=== PATIENT | male | born 1930 | race Caucasian/White ===

== ENCOUNTER 2017-10-16 20:31 | Emergency (ER) | payer MEDICARE ==
[2017-10-16] MEDS ORDERED: SODIUM CHLORIDE 0.9% 1,000 ML IV STA (21:02)
--- NOTE | 2017-10-16 21:04 | ED ---
General Adult HPI - General Chief complaint: Abdominal Pain Stated complaint: bowel problems Time Seen by Provider: 10/16/17 21:01 Source: patient, RN notes reviewed, old records reviewed Mode of arrival: wheelchair Limitations: no limitations - History of Present Illness Initial comments: This is a 6-year-old male the ER for evaluation. Patient comes in for weakness , constipation feels he cannot move his bowels. Was in ER earlier this week for similar event. Patient did eat and drink appropriately. No significant weight loss no abdominal pain. - Related Data Home Medications Medication Instructions Recorded Confirmed Allopurinol [Zyloprim] 300 mg PO DAILY 10/16/17 10/16/17 Apixaban [Eliquis] 2.5 mg PO BID 10/16/17 10/16/17 Aspirin EC [Ecotrin Low Dose] 81 mg PO DAILY 10/16/17 10/16/17 Carvedilol [Coreg] 25 mg PO BID 10/16/17 10/16/17 Cyanocobalamin (Vitamin B-12) 1,000 mcg PO DAILY 10/16/17 10/16/17 [Vitamin B-12] Enalapril [Vasotec] 20 mg PO BID 10/16/17 10/16/17 Pyridoxine HCl (Vitamin B6) 100 mg PO DAILY 10/16/17 10/16/17 [Vitamin B-6] Ubidecarenone [Co Q-10] 100 mg PO DAILY 10/16/17 10/16/17 Vitamin D3(Unknown) 1 tab PO DAILY 10/16/17 10/16/17 amLODIPine [Norvasc] 5 mg PO DAILY 10/16/17 10/16/17 Allergies Allergy/AdvReac Type Severity Reaction Status Date / Time No Known Allergies Allergy Verified 10/16/17 21:13 Review of Systems ROS Statement: Those systems with pertinent positive or pertinent negative responses have been documented in the HPI. ROS Other: All systems not noted in ROS Statement are negative. Past Medical History Past Medical History: Coronary Artery Disease (CAD), Hyperlipidemia, Hypertension Additional Past Medical History / Comment(s): aortic stent, History of Any Multi-Drug Resistant Organisms: None Reported Past Surgical History: Heart Catheterization With Stent, Orthopedic Surgery Additional Past Surgical History / Comment(s): right hip Past Psychological History: No Psychological Hx Reported Smoking Status: Former smoker Past Alcohol Use History: None Reported Past Drug Use History: None Reported General Exam Limitations: no limitations General appearance: alert, in no apparent distress Head exam: Present: atraumatic, normocephalic, normal inspection Eye exam: Present: normal appearance, PERRL, EOMI. Absent: scleral icterus, conjunctival injection, periorbital swelling ENT exam: Present: normal exam, mucous membranes moist Neck exam: Present: normal inspection. Absent: tenderness, meningismus, lymphadenopathy Respiratory exam: Present: normal lung sounds bilaterally. Absent: respiratory distress, wheezes, rales, rhonchi, stridor Cardiovascular Exam: Present: regular rate, normal rhythm, normal heart sounds. Absent: systolic murmur, diastolic murmur, rubs, gallop, clicks GI/Abdominal exam: Present: soft, normal bowel sounds. Absent: distended, tenderness, guarding, rebound, rigid Extremities exam: Present: normal inspection, full ROM, normal capillary refill. Absent: tenderness, pedal edema, joint swelling, calf tenderness Back exam: Present: normal inspection Neurological exam: Present: alert, oriented X3, CN II-XII intact Psychiatric exam: Present: normal affect, normal mood Skin exam: Present: warm, dry, intact, normal color. Absent: rash Course Vital Signs 10/16/17 20:51 Temperature 97.2 F L Pulse Rate 67 Respiratory 20 Rate Blood Pressure 107/67 O2 Sat by Pulse 97 Oximetry - Reevaluation(s) Reevaluation #1: 10/16/17 22:19 Patient has bowel movement here in the ER, no complaints Medical Decision Making - Medical Decision Making 86 male the ER for acute disease. Patient has a bowel movement here in the ER r with bowel regimen. Patient can be discharged home - Lab Data Result diagrams: 10/16/17 21:20 10/16/17 21:20 Lab Results 10/16/17 10/16/17 Range/Units 21:20 21:20 WBC 8.2 (3.8-10.6) k/uL RBC 3.91 L (4.30-5.90) m/uL Hgb 12.0 L (13.0-17.5) gm/dL Hct 37.2 L (39.0-53.0) % MCV 95.0 (80.0-100.0) fL MCH 30.6 (25.0-35.0) pg MCHC 32.2 (31.0-37.0) g/dL RDW 14.3 (11.5-15.5) % Plt Count 124 L (150-450) k/uL Neutrophils % 77 % Lymphocytes % 12 % Monocytes % 7 % Eosinophils % 3 % Basophils % 0 % Neutrophils # 6.4 (1.3-7.7) k/uL Lymphocytes # 1.0 (1.0-4.8) k/uL Monocytes # 0.6 (0-1.0) k/uL Eosinophils # 0.2 (0-0.7) k/uL Basophils # 0.0 (0-0.2) k/uL Sodium 143 (137-145) mmol/L Potassium 4.4 (3.5-5.1) mmol/L Chloride 101 (98-107) mmol/L Carbon Dioxide 29 (22-30) mmol/L Anion Gap 13 mmol/L BUN 24 H (9-20) mg/dL Creatinine 0.90 (0.66-1.25) mg/dL Est GFR (CKD-EPI)AfAm 89 (>60 ml/min/1.73 sqM) Est GFR (CKD-EPI)NonAf 77 (>60 ml/min/1.73 sqM) Glucose 101 H (74-99) mg/dL Calcium 9.7 (8.4-10.2) mg/dL Phosphorus 3.4 (2.5-4.5) mg/dL Magnesium 1.8 (1.6-2.3) mg/dL Total Bilirubin 0.8 (0.2-1.3) mg/dL AST 34 (17-59) U/L ALT 18 L (21-72) U/L Alkaline Phosphatase 72 (38-126) U/L Total Protein 6.1 L (6.3-8.2) g/dL Albumin 3.9 (3.5-5.0) g/dL Amylase 54 (30-110) U/L Lipase 98 (23-300) U/L - Radiology Data Radiology results: report reviewed (X-ray KUB negative), image reviewed Disposition Clinical Impression: Constipation Disposition: HOME SELF-CARE Condition: Good Instructions: Constipation (ED) Is patient prescribed a controlled substance at d/c from ED?: No Referrals: Prem Cedeno MD [Primary Care Provider] - 1-2 days
--- NOTE | 2017-10-16 21:20 | XR ---
EXAMINATION TYPE: XR KUB DATE OF EXAM: 10/16/2017 COMPARISON: NONE HISTORY: Constipation TECHNIQUE: 2 views FINDINGS: There is no sign of intestinal obstruction or pneumoperitoneum. Fecal pattern is normal. Th ere is an aortoiliac stent noted. Lung bases are clear. There are no pathologic calcifications over t he kidneys. There is right hip prosthesis. There is increased density over the heart that could relat e to thoracic aortic aneurysm. IMPRESSION: Possible thoracic aortic aneurysm or unusual dilated esophagus. Nonacute abdomen. No evid ence of constipation.
[2017-10-16] MEDS ORDERED: KETOROLAC 30 MG/ML 1 ML VIAL IVP STA (21:23)
[2017-10-16] MEDS ORDERED: GLYCERIN ADULT SUPPOSITORY 1 EACH RECTAL STA (21:23)
[2017-10-16] MEDS ORDERED: MAGNESIUM CITRATE 296 ML BOTTLE PO ONE (21:23)
[2017-10-16] MEDS ORDERED: SENNOSIDES-DOCUSATE SODIUM 1 EACH TAB PO STA (21:23)
[2017-10-16 21:36] LABS: Basophils % (A) 0 %; Eosinophils # (A) 0.2 k/uL (0-0.7); Eosinophils % (A) 3 %; HCT 37.2 % (39.0-53.0); Lymphocytes % (A) 12 %; MCH 30.6 pg (25.0-35.0); MCHC 32.2 g/dL (31.0-37.0); Mean Platelet Volume 8.9; Monocytes # (A) 0.6 k/uL (0-1.0); Monocytes % (A) 7 %; Neutrophils # (A) 6.4 k/uL (1.3-7.7); Neutrophils % (A) 77 %; Platelet Count 124 k/uL (150-450); RBC 3.91 m/uL (4.30-5.90); RDW 14.3 % (11.5-15.5); WBC 8.2 k/uL (3.8-10.6)
[2017-10-16 21:54] LABS: Albumin 3.9 g/dL (3.5-5.0); Calcium 9.7 mg/dL (8.4-10.2); Magnesium 1.8 mg/dL (1.6-2.3); Phosphorus 3.4 mg/dL (2.5-4.5); Potassium 4.4 mmol/L (3.5-5.1); Total Bilirubin 0.8 mg/dL (0.2-1.3); Total Protein 6.1 g/dL (6.3-8.2)
[2017-10-16 22:34] VITALS: BP 115/70; PULSE 90; RESP 18; TEMP 97
== END 2017-10-16 22:33 | disposition home or self-care (01) ==
LOC: EC 20:31
DX: K59.00 Constipation, unspecified (principal); R10.9 Unspecified abdominal pain; R53.1 Weakness; I25.10 Atherosclerotic heart disease of native coronary artery without angina pectoris; E78.5 Hyperlipidemia, unspecified; I10 Essential (primary) hypertension; Z87.891 Personal history of nicotine dependence; Z79.82 Long term (current) use of aspirin; Z79.01 Long term (current) use of anticoagulants; Z79.899 Other long term (current) drug therapy; Z95.5 Presence of coronary angioplasty implant and graft
CPT/HCPCS: 36415; 80053; 82150; 83690; 83735; 84100; 85025; 74018; 99284; 96374; 96361; J1885

== ENCOUNTER 2017-12-11 19:33 | Emergency (ER) | payer MEDICARE ==
[2017-12-11 19:45] VITALS: BP 146/78; PULSE 64; RESP 18; TEMP 98.3
[2017-12-11] MEDS ORDERED: ceFAZolin 1,000 MG VIAL IM STA (19:52)
--- NOTE | 2017-12-11 19:56 | ED ---
General Adult HPI - General Chief complaint: Skin/Abscess/Foreign Body Stated complaint: fall Time Seen by Provider: 12/11/17 19:35 Source: patient, RN notes reviewed Mode of arrival: wheelchair Limitations: no limitations - History of Present Illness Initial comments: This is an 86-year-old male who comes in complaining of possible infection to his abrasion on his right falcon. Patient states he fell 2 days ago causing abrasion. Patient states he still somewhat an urgent care facility and they wrapped it became no antibiotics. Patient states today was a little more red so he wanted to make sure wasn't getting infected and came in to be evaluated. Patient denies any drainage patient denies any increased pain. Patient is a red streak. Patient denies any fever or chills. - Related Data Home Medications Medication Instructions Recorded Confirmed Allopurinol [Zyloprim] 300 mg PO DAILY 10/16/17 10/16/17 Apixaban [Eliquis] 2.5 mg PO BID 10/16/17 10/16/17 Aspirin EC [Ecotrin Low Dose] 81 mg PO DAILY 10/16/17 10/16/17 Carvedilol [Coreg] 25 mg PO BID 10/16/17 10/16/17 Cyanocobalamin (Vitamin B-12) 1,000 mcg PO DAILY 10/16/17 10/16/17 [Vitamin B-12] Enalapril [Vasotec] 20 mg PO BID 10/16/17 10/16/17 Pyridoxine HCl (Vitamin B6) 100 mg PO DAILY 10/16/17 10/16/17 [Vitamin B-6] Ubidecarenone [Co Q-10] 100 mg PO DAILY 10/16/17 10/16/17 Vitamin D3(Unknown) 1 tab PO DAILY 10/16/17 10/16/17 amLODIPine [Norvasc] 5 mg PO DAILY 10/16/17 10/16/17 Previous Rx's Medication Instructions Recorded Cephalexin [Keflex] 500 mg PO Q6HR #28 cap 12/11/17 Mupirocin 2% Oint [Bactroban 2% 1 applic TOPICAL TID 7 Days gm 12/11/17 Oint] Allergies Allergy/AdvReac Type Severity Reaction Status Date / Time No Known Allergies Allergy Verified 12/11/17 19:44 Review of Systems ROS Statement: Those systems with pertinent positive or pertinent negative responses have been documented in the HPI. ROS Other: All systems not noted in ROS Statement are negative. Past Medical History Past Medical History: Coronary Artery Disease (CAD), Hyperlipidemia, Hypertension Additional Past Medical History / Comment(s): aortic stent, History of Any Multi-Drug Resistant Organisms: None Reported Past Surgical History: Heart Catheterization With Stent, Orthopedic Surgery Additional Past Surgical History / Comment(s): right hip Past Psychological History: No Psychological Hx Reported Smoking Status: Former smoker Past Alcohol Use History: None Reported Past Drug Use History: None Reported General Exam - General Exam Comments Initial Comments: GENERAL Patient is well-developed and well-nourished. Patient is in mild distress. EYES Patient's pupils are equal and round. Extraocular motion is intact SKIN Unremarkable NEURO The patient is alert and oriented 3 PYSCH Patient has normal interpersonal interactions. MUSCULOSKELETAL Patient has a superficial abrasion to the right anterior falcon however there is some mild erythema around the wound which she states is new today Limitations: no limitations Course Vital Signs 12/11/17 19:40 Temperature 98.3 F Pulse Rate 64 Respiratory 18 Rate Blood Pressure 146/78 O2 Sat by Pulse 96 Oximetry Medical Decision Making - Medical Decision Making Because the patient was complaining of some new increased redness today around the abrasion I gave the patient a shot of Ancef and sent the patient home on Keflex. Disposition Clinical Impression: Cellulitis, leg Disposition: HOME SELF-CARE Condition: Good Instructions: Cellulitis (ED) Prescriptions: Cephalexin [Keflex] 500 mg PO Q6HR #28 cap Mupirocin 2% Oint [Bactroban 2% Oint] 1 applic TOPICAL TID 7 Days gm Is patient prescribed a controlled substance at d/c from ED?: No Referrals: Prem Cedeno MD [Primary Care Provider] - 1-2 days Time of Disposition: 19:55
== END 2017-12-11 20:33 | disposition home or self-care (01) ==
LOC: EC 19:33
DX: L03.115 Cellulitis of right lower limb (principal); S80.811A Abrasion, right lower leg, initial encounter; I10 Essential (primary) hypertension; I25.10 Atherosclerotic heart disease of native coronary artery without angina pectoris; Z87.891 Personal history of nicotine dependence; Z79.01 Long term (current) use of anticoagulants; Z79.82 Long term (current) use of aspirin; Z79.899 Other long term (current) drug therapy; W07.XXXA Fall from chair, initial encounter
CPT/HCPCS: 99283; 96372; J0690

== ENCOUNTER 2018-01-16 15:12 | Emergency (ER) | payer MEDICARE ==
[2018-01-16] MEDS ORDERED: SODIUM CHLORIDE 0.9% 1,000 ML IV STA (15:26)
[2018-01-16 15:48] VITALS: RESP 18
[2018-01-16 15:57] LABS: Basophils % (A) 0 %; Eosinophils # (A) 0.4 k/uL (0-0.7); Eosinophils % (A) 6 %; HCT 38.2 % (39.0-53.0); HGB 11.9 gm/dL (13.0-17.5); Hypochromasia Slight; Lymphocytes % (A) 14 %; MCH 29.5 pg (25.0-35.0); MCHC 31.3 g/dL (31.0-37.0); MCV 94.2 fL (80.0-100.0); Mean Platelet Volume 8.1; Monocytes # (A) 0.5 k/uL (0-1.0); Monocytes % (A) 7 %; Neutrophils % (A) 72 %; Platelet Count 129 k/uL (150-450); RBC 4.05 m/uL (4.30-5.90); RDW 14.2 % (11.5-15.5); WBC 6.9 k/uL (3.8-10.6)
[2018-01-16 16:06] LABS: INR 1.2 (<1.2); Partial Thromboplastin Time 24.2 sec (22.0-30.0); Prothrombin Time 11.4 sec (9.0-12.0)
--- NOTE | 2018-01-16 16:07 | ED ---
Neuro HPI - General Chief Complaint: Neuro Symptoms/Deficit Stated Complaint: Fall Time Seen by Provider: 01/16/18 15:15 Source: patient Mode of arrival: EMS Limitations: physical limitation - History of Present Illness Is the patient presenting with stroke symptoms?: No Initial Comments: He fell yesterday, he landed on his knees and hit his head against a humidifier is complaining about pain behind the right ear then he developed difficulties speaking yesterday around 7 PM, it has cleared up now he is on a blood thinners he is on aliquots for his atrial fibrillation. Right now denies any headaches no blurred vision no slurred speech no chest pain or shortness of breath no abdominal pain no frequency urgency dysuria he has symptoms of TIA or CVA area which has resolved now. He feels his right leg is weak he is not quite sure if this is because of the injury he has right knee. He denies any loss of consciousness - Related Data Home Medications: Home Medications Medication Instructions Recorded Confirmed Allopurinol [Zyloprim] 300 mg PO DAILY 10/16/17 01/16/18 Apixaban [Eliquis] 2.5 mg PO BID 10/16/17 01/16/18 Aspirin EC [Ecotrin Low Dose] 81 mg PO DAILY 10/16/17 01/16/18 Carvedilol [Coreg] 25 mg PO BID 10/16/17 01/16/18 Enalapril [Vasotec] 20 mg PO BID 10/16/17 01/16/18 Ubidecarenone [Co Q-10] 100 mg PO DAILY 10/16/17 01/16/18 amLODIPine [Norvasc] 5 mg PO DAILY 10/16/17 01/16/18 Rosuvastatin [Crestor] 20 mg PO HS 12/11/17 01/16/18 Vitamin B Complex 2 cap PO DAILY 01/16/18 01/16/18 Previous Rx's Medication Instructions Recorded Mupirocin 2% Oint [Bactroban 2% 1 applic TOPICAL TID 7 Days gm 12/11/17 Oint] Allergies/Adverse Reactions: Allergies Allergy/AdvReac Type Severity Reaction Status Date / Time No Known Allergies Allergy Verified 01/16/18 16:12 Review of Systems ROS Statement: Those systems with pertinent positive or pertinent negative responses have been documented in the HPI. ROS Other: All systems not noted in ROS Statement are negative. General Exam - General Exam Comments Initial Comments: General: The patient is awake and alert, in no distress, and does not appear acutely ill. Skin: Skin is warm and dry and no rashes or lesions are noted. Notice abrasions on the right knee and some extent on the left knee as well. Noticed some bruising on the right ear, there is no laceration there is no hematoma on the external ear Eye: Pupils are equal, round and reactive to light, extra-ocular movements are intact; there is normal conjunctiva bilaterally. Ears, nose, mouth and throat: There are moist mucous membranes and no oral lesions. Neck: The neck is supple, there is no tenderness or JVD. Cardiovascular: There is a regular rate and rhythm. No murmur, rub or gallop is appreciated. Respiratory: To auscultation bilateral, no wheezing no rhonchi no distress respiratory bone noticed Gastrointestinal: Soft, non-distended, non-tender abdomen without masses or organomegaly noted. There is no rebound or guarding present. Bowel sounds are unremarkable. Back: There is no tenderness to palpation in the midline. There is no obvious deformity. Musculoskeletal: Normal ROM, no tenderness, There is no pedal edema. There is no calf tenderness or swelling. No cords were appreciated. Neurological: CN II-XII intact, Cranial nerves III through XII are intact. There are no obvious motor or sensory deficits. Coordination appears grossly intact. Speech is normal. Psychiatric: Cooperative, appropriate mood & affect, normal judgment. Limitations: physical limitation Stroke MDM - Lab Data Result diagrams: 01/16/18 15:30 01/16/18 15:30 Lab Results 01/16/18 01/16/18 01/16/18 Range/Units 15:30 15:30 15:30 WBC 6.9 (3.8-10.6) k/uL RBC 4.05 L (4.30-5.90) m/uL Hgb 11.9 L (13.0-17.5) gm/dL Hct 38.2 L (39.0-53.0) % MCV 94.2 (80.0-100.0) fL MCH 29.5 (25.0-35.0) pg MCHC 31.3 (31.0-37.0) g/dL RDW 14.2 (11.5-15.5) % Plt Count 129 L (150-450) k/uL Neutrophils % 72 % Lymphocytes % 14 % Monocytes % 7 % Eosinophils % 6 % Basophils % 0 % Neutrophils # 5.0 (1.3-7.7) k/uL Lymphocytes # 1.0 (1.0-4.8) k/uL Monocytes # 0.5 (0-1.0) k/uL Eosinophils # 0.4 (0-0.7) k/uL Basophils # 0.0 (0-0.2) k/uL Hypochromasia Slight PT (9.0-12.0) sec INR (<1.2) APTT (22.0-30.0) sec Sodium 140 (137-145) mmol/L Potassium 4.7 (3.5-5.1) mmol/L Chloride 108 H (98-107) mmol/L Carbon Dioxide 28 (22-30) mmol/L Anion Gap 4 mmol/L BUN 36 H (9-20) mg/dL Creatinine 0.90 (0.66-1.25) mg/dL Est GFR (CKD-EPI)AfAm 88 (>60 ml/min/1.73 sqM) Est GFR (CKD-EPI)NonAf 77 (>60 ml/min/1.73 sqM) Glucose 99 (74-99) mg/dL Calcium 9.2 (8.4-10.2) mg/dL Total Bilirubin 0.6 (0.2-1.3) mg/dL AST 29 (17-59) U/L ALT 29 (21-72) U/L Alkaline Phosphatase 91 (38-126) U/L Total Creatine Kinase 56 (55-170) U/L CK-MB (CK-2) 0.6 (0.0-2.4) ng/mL CK-MB (CK-2) Rel Index 1.1 Troponin I <0.012 (0.000-0.034) ng/mL Total Protein 6.1 L (6.3-8.2) g/dL Albumin 3.7 (3.5-5.0) g/dL 01/16/18 Range/Units 15:30 WBC (3.8-10.6) k/uL RBC (4.30-5.90) m/uL Hgb (13.0-17.5) gm/dL Hct (39.0-53.0) % MCV (80.0-100.0) fL MCH (25.0-35.0) pg MCHC (31.0-37.0) g/dL RDW (11.5-15.5) % Plt Count (150-450) k/uL Neutrophils % % Lymphocytes % % Monocytes % % Eosinophils % % Basophils % % Neutrophils # (1.3-7.7) k/uL Lymphocytes # (1.0-4.8) k/uL Monocytes # (0-1.0) k/uL Eosinophils # (0-0.7) k/uL Basophils # (0-0.2) k/uL Hypochromasia PT 11.4 (9.0-12.0) sec INR 1.2 H (<1.2) APTT 24.2 (22.0-30.0) sec Sodium (137-145) mmol/L Potassium (3.5-5.1) mmol/L Chloride (98-107) mmol/L Carbon Dioxide (22-30) mmol/L Anion Gap mmol/L BUN (9-20) mg/dL Creatinine (0.66-1.25) mg/dL Est GFR (CKD-EPI)AfAm (>60 ml/min/1.73 sqM) Est GFR (CKD-EPI)NonAf (>60 ml/min/1.73 sqM) Glucose (74-99) mg/dL Calcium (8.4-10.2) mg/dL Total Bilirubin (0.2-1.3) mg/dL AST (17-59) U/L ALT (21-72) U/L Alkaline Phosphatase (38-126) U/L Total Creatine Kinase (55-170) U/L CK-MB (CK-2) (0.0-2.4) ng/mL CK-MB (CK-2) Rel Index Troponin I (0.000-0.034) ng/mL Total Protein (6.3-8.2) g/dL Albumin (3.5-5.0) g/dL Past Medical History Past Medical History: Coronary Artery Disease (CAD), Hyperlipidemia, Hypertension Additional Past Medical History / Comment(s): aortic stent, History of Any Multi-Drug Resistant Organisms: None Reported Past Surgical History: Heart Catheterization With Stent, Orthopedic Surgery Additional Past Surgical History / Comment(s): right hip Past Psychological History: No Psychological Hx Reported Smoking Status: Former smoker Past Alcohol Use History: None Reported Past Drug Use History: None Reported Course Vital Signs 01/16/18 01/16/18 01/16/18 15:30 15:46 15:55 Temperature 99 F Pulse Rate 67 63 78 Respiratory 18 18 18 Rate Blood Pressure 156/72 138/68 137/70 O2 Sat by Pulse 99 98 98 Oximetry He fell yesterday 11 AM, he noticed symptoms of dysarthria 7 PM last night he is not in any kind of in and out and his symptoms has cleared he is not a candidate of any kind of intervention or do a head CT because he fell is 87 and he is on aliquots. EKG is atrial fibrillation he has a history of atrial fibrillation ventricular rate of 71 QRS duration is 86 QT/QTc is 428/465 review of this EKG does not reveal any ST elevation or ST depression. Plan reassessment at 1700 he feels back to 100% initially he said his legs feels weak and I wanted to observe him overnight for neurology consult and probably MRI but now he said he feels symptoms have resolved 100% and he wants to go home. His head CT is, chest x-ray was some cardiomegaly x-ray CBC, INR, troponin, EKG, comprehensive metabolic panel are all and unremarkable and clinically he feels he is back to his baseline. He'll be gone home we'll lobe send him to follow-up with the Disposition Clinical Impression: Dysarthria, Fall, Knee injury, Head injury, TIA (transient ischemic attack) Disposition: HOME SELF-CARE Condition: Good Instructions: Transient Ischemic Attack (ED) Additional Instructions: Aspirin 81 mg by mouth daily Is patient prescribed a controlled substance at d/c from ED?: No Referrals: Prem Cedeno MD [Primary Care Provider] - 1-2 days Raegan Hdz MD [STAFF PHYSICIAN] - 1-2 days
[2018-01-16 16:10] LABS: Albumin 3.7 g/dL (3.5-5.0); Calcium 9.2 mg/dL (8.4-10.2); Potassium 4.7 mmol/L (3.5-5.1); Total Bilirubin 0.6 mg/dL (0.2-1.3); Total Protein 6.1 g/dL (6.3-8.2)
[2018-01-16 16:13] LABS: Creatine Kinase 56 U/L (55-170)
--- NOTE | 2018-01-16 16:22 | CT ---
EXAMINATION TYPE: CT brain wo con DATE OF EXAM: 01/16/2018 HISTORY: Fall injury. Neural deficits per order. CT DLP: 1165 mGycm. Automated Exposure Control for Dose Reduction was Utilized. TECHNIQUE: CT scan of the head is performed without contrast. COMPARISON: None. FINDINGS: There is no acute intracranial hemorrhage or midline shift identified. There is diffuse v entricular and sulcal prominence consistent with diffuse age-related cerebral atrophy. There is low- attenuation in the periventricular white matter consistent with chronic small vessel ischemic change. Bilateral basal ganglia calcifications are seen. The globes are intact and the visualized sinuses ar e clear. The calvarium is intact. Vascular calcification distal internal carotid arteries bilateral ly is present. IMPRESSION: No acute intracranial hemorrhage or midline shift. There is fairly moderate diffuse age -related cerebral atrophy and mild chronic small vessel ischemic change noted. If clinical concern for acute stroke persists further investigation with MRI study may be warranted.
[2018-01-16 16:26] LABS: Creatine Kinase MB 0.6 ng/mL (0.0-2.4); Troponin I <0.012 ng/mL (0.000-0.034)
--- NOTE | 2018-01-16 16:52 | XR ---
EXAMINATION TYPE: XR chest 2V DATE OF EXAM: 01/16/2018 COMPARISON: 01/09/2013 HISTORY: Altered mental status. TECHNIQUE: Frontal and lateral views of the chest are obtained. FINDINGS: Heart is enlarged. There is no heart failure. Lungs are clear of infiltrate. There is no p leural effusion. There are chest leads. Bony thorax is intact. IMPRESSION: Cardiomegaly. No active cardiopulmonary disease. No change.
--- NOTE | 2018-01-16 16:53 | XR ---
EXAMINATION TYPE: XR knee complete bilateral DATE OF EXAM: 01/16/2018 COMPARISON: NONE HISTORY: Knee pain TECHNIQUE: 3 views each knee FINDINGS: There is vascular calcification. There is spurring on the right superior patella. The joint spaces are fairly normal. There is some spurring at the left tibial tubercle. There is small right-s ided knee joint effusion. IMPRESSION: No fracture. Degenerative spurring as above. There is some prepatellar soft tissue swelli ng on the right side with small knee joint effusion. No significant joint space narrowing.
[2018-01-16] MEDS ORDERED: ASPIRIN 81 MG PO STA (16:54)
[2018-01-16] MEDS ORDERED: DIPH,PERTUS(ACELL)TETVAC-LF 0.5 ML VIAL IM ONE (16:55)
[2018-01-16 17:50] VITALS: BP 143/67; PULSE 62; TEMP 98.4
== END 2018-01-16 17:50 | disposition home or self-care (01) ==
LOC: EC 15:12
DX: G45.9 Transient cerebral ischemic attack, unspecified (principal); S80.211A Abrasion, right knee, initial encounter; S00.431A Contusion of right ear, initial encounter; R47.1 Dysarthria and anarthria; Z23 Encounter for immunization; Z79.01 Long term (current) use of anticoagulants; Z79.82 Long term (current) use of aspirin; Z79.899 Other long term (current) drug therapy; W01.198A Fall on same level from slipping, tripping and stumbling with subsequent striking against other object, initial encounter; Y92.69 Other specified industrial and construction area as the place of occurrence of the external cause; Y99.0 Civilian activity done for income or pay
CPT/HCPCS: 36415; 70450; 71046; 80053; 82550; 82553; 84484; 85025; 85610; 85730; 90471; 90715; 93005; 96360; 96361; 99284

== ENCOUNTER 2018-04-04 00:12 | Inpatient (IN) | payer MEDICARE ==
[2018-04-04] MEDS ORDERED: SODIUM CHLORIDE 0.9% 500 ML 500 ML IV STA (01:18)
[2018-04-04] MEDS ORDERED: IPRATROPIUM-ALBUTEROL 3 ML NEB INHALATION STA (01:19)
--- NOTE | 2018-04-04 01:19 | ED ---
General Adult HPI - General Source: patient, RN notes reviewed Mode of arrival: wheelchair Limitations: no limitations <John Nicole - Last Filed: 04/05/18 12:05> <Alexandre Garrett - Last Filed: 04/06/18 20:18> - General Chief complaint: Shortness of Breath Stated complaint: SOB Time Seen by Provider: 04/04/18 00:56 - History of Present Illness Initial comments: 87-year-old male with a past medical history of hyper tension, hyperlipidemia, CAD, atrial fibrillation presents to the emergency department for a chief complaint of shortness of breath 3 nights. Patient states that when he lays down at night he develops shortness of breath. He denies a history of heart failure. He denies any swelling in the legs. Patient denies any current smoking and states he quit over 30 years ago. Patient did have a heart catheterization years ago and currently has an aortic stent. Patient admits to feeling like he is wheezing when he is lying flat. He denies having any chest pain whatsoever. He denies having a cough. He denies any fevers at home. Patient has no other complaints at this time including his pain, abdominal pain , nausea or vomiting, headache, or visual changes. (John Nicole) - Related Data Home Medications Medication Instructions Recorded Confirmed Allopurinol [Zyloprim] 300 mg PO DAILY 10/16/17 04/04/18 Apixaban [Eliquis] 2.5 mg PO BID 10/16/17 04/04/18 Aspirin EC [Ecotrin Low Dose] 81 mg PO DAILY 10/16/17 04/04/18 Carvedilol [Coreg] 25 mg PO BID 10/16/17 04/04/18 Enalapril [Vasotec] 20 mg PO BID 10/16/17 04/04/18 Ubidecarenone [Co Q-10] 100 mg PO DAILY 10/16/17 04/04/18 amLODIPine [Norvasc] 5 mg PO DAILY 10/16/17 04/04/18 Hydrochlorothiazide [Hydrodiuril] 12.5 mg PO DAILY 04/04/18 04/04/18 Lutein 10 mg PO DAILY 04/04/18 04/04/18 Allergies Allergy/AdvReac Type Severity Reaction Status Date / Time No Known Allergies Allergy Verified 01/16/18 16:12 Review of Systems ROS Other: All systems not noted in ROS Statement are negative. <John Nicole - Last Filed: 04/05/18 12:05> ROS Other: All systems not noted in ROS Statement are negative. <ElversuhaAlexandre - Last Filed: 04/06/18 20:18> ROS Statement: Those systems with pertinent positive or pertinent negative responses have been documented in the HPI. Past Medical History Past Medical History: Coronary Artery Disease (CAD), Hyperlipidemia, Hypertension Additional Past Medical History / Comment(s): aortic stent, History of Any Multi-Drug Resistant Organisms: None Reported Past Surgical History: Heart Catheterization With Stent, Orthopedic Surgery Additional Past Surgical History / Comment(s): right hip Past Psychological History: No Psychological Hx Reported Smoking Status: Former smoker Past Alcohol Use History: None Reported Past Drug Use History: None Reported <John Nicole - Last Filed: 04/05/18 12:05> - Past Family History Father Family Medical History: No Reported History Additional Family Medical History / Comment(s): Father of natural causes at the age of 92 yrs. Mother Family Medical History: No Reported History Additional Family Medical History / Comment(s): Mother of natural causes at the age of 89yrs. <Alexandre Garrett - Last Filed: 04/06/18 20:18> General Exam Limitations: no limitations General appearance: alert, in no apparent distress Head exam: Present: atraumatic, normocephalic, normal inspection Eye exam: Present: normal appearance, PERRL, EOMI. Absent: scleral icterus, conjunctival injection, periorbital swelling ENT exam: Present: normal exam, mucous membranes moist Neck exam: Present: normal inspection, full ROM. Absent: tenderness, meningismus, lymphadenopathy Respiratory exam: Present: decreased breath sounds (Diminished lung sounds bilaterally). Absent: respiratory distress, wheezes, rales, rhonchi, stridor Cardiovascular Exam: Present: regular rate, irregular rhythm, normal heart sounds. Absent: systolic murmur, diastolic murmur, rubs, gallop, clicks Neurological exam: Present: alert, oriented X3, CN II-XII intact Psychiatric exam: Present: normal affect, normal mood <John Nicole - Last Filed: 04/05/18 12:05> Vital Signs 04/04/18 04/04/18 04/04/18 00:24 01:27 03:01 Temperature 98.5 F Pulse Rate 76 76 Respiratory 20 16 Rate Blood Pressure 122/73 O2 Sat by Pulse 94 L 90 L Oximetry 04/04/18 04/04/18 04/04/18 03:17 03:26 04:47 Temperature Pulse Rate 80 76 80 Respiratory 16 Rate Blood Pressure 119/67 O2 Sat by Pulse 95 Oximetry 04/04/18 04/04/18 04/04/18 07:09 08:19 13:00 Temperature 98.5 F 98.0 F Pulse Rate 85 88 84 Respiratory 16 18 16 Rate Blood Pressure 110/68 113/76 106/64 O2 Sat by Pulse 92 L 98 98 Oximetry EKG Findings - EKG Comments: EKG Findings:: EKG shows atrial fibrillation, ventricular rate 82, QRS duration 78, QTc 436, no evidence of ST elevation or depression <John Nicole - Last Filed: 04/05/18 12:05> Medical Decision Making - Lab Data Result diagrams: 04/04/18 00:25 04/05/18 06:32 <John Nicole - Last Filed: 04/05/18 12:05> - Lab Data Result diagrams: 04/06/18 05:51 04/06/18 05:51 <Alexandre Garrett - Last Filed: 04/06/18 20:18> - Medical Decision Making 87-year-old male with past medical history of hypertension, hyperlipidemia, CAD , atrial fibrillation presents to the emergency department for a chief complaint of shortness of breath 3 days. Shortness of breath is worse when he lays down at night. He denies a history of heart failure. On exam patient has diminished lung sounds bilaterally. He denies cough. No wheezing noted. He does not appear short of breath at this time and appears comfortable. EKG showed atrial fibrillation without any evidence of ST elevation or depression. Troponin was positive at 0.082. Patient is currently compliant on Eliquis which will be continued in the hospital. D-dimer 3.15 the patient cannot receive CAT scan at this time due to kidney function. VQ scan will be ordered for the morning. X-ray of the chest showed new bilateral pleural effusions. Lower lobe pneumonia cannot be entirely excluded but the patient denies cough or fever and does not clinically have pneumonia. Pleural effusions likely secondary to CHF. At this time patient will be started on Lasix. He will be admitted to the hospital with repeat troponins ordered. (John Nicole) I saw this patient in conjunction with the physician patient assistant. I performed independent history and physical exam. Agree with case management. (Alexandre Garrett) - Lab Data Lab Results 04/04/18 04/04/18 04/04/18 Range/Units 00:25 00:25 00:25 WBC 15.2 H (3.8-10.6) k/uL RBC 4.16 L (4.30-5.90) m/uL Hgb 12.1 L (13.0-17.5) gm/dL Hct 39.3 (39.0-53.0) % MCV 94.5 (80.0-100.0) fL MCH 29.1 (25.0-35.0) pg MCHC 30.8 L (31.0-37.0) g/dL RDW 14.3 (11.5-15.5) % Plt Count 253 (150-450) k/uL Neutrophils % 87 % Lymphocytes % 6 % Monocytes % 6 % Eosinophils % 0 % Basophils % 0 % Neutrophils # 13.2 H (1.3-7.7) k/uL Lymphocytes # 1.0 (1.0-4.8) k/uL Monocytes # 0.9 (0-1.0) k/uL Eosinophils # 0.0 (0-0.7) k/uL Basophils # 0.0 (0-0.2) k/uL PT (9.0-12.0) sec INR (<1.2) APTT (22.0-30.0) sec D-Dimer (<0.60) mg/L FEU Sodium 137 (137-145) mmol/L Potassium 5.1 (3.5-5.1) mmol/L Chloride 102 (98-107) mmol/L Carbon Dioxide 27 (22-30) mmol/L Anion Gap 8 mmol/L BUN 47 H (9-20) mg/dL Creatinine 1.58 H (0.66-1.25) mg/dL Est GFR (CKD-EPI)AfAm 45 (>60 ml/min/1.73 sqM) Est GFR (CKD-EPI)NonAf 39 (>60 ml/min/1.73 sqM) Glucose 130 H (74-99) mg/dL Calcium 9.5 (8.4-10.2) mg/dL Magnesium 2.1 (1.6-2.3) mg/dL Total Bilirubin 0.9 (0.2-1.3) mg/dL AST 27 (17-59) U/L ALT 34 (21-72) U/L Alkaline Phosphatase 72 (38-126) U/L Total Creatine Kinase 54 L (55-170) U/L CK-MB (CK-2) 0.8 (0.0-2.4) ng/mL CK-MB (CK-2) Rel Index 1.5 Troponin I 0.082 H* (0.000-0.034) ng/mL NT-Pro-B Natriuret Pep pg/mL Total Protein 6.2 L (6.3-8.2) g/dL Albumin 3.4 L (3.5-5.0) g/dL 04/04/18 04/04/18 Range/Units 00:25 00:25 WBC (3.8-10.6) k/uL RBC (4.30-5.90) m/uL Hgb (13.0-17.5) gm/dL Hct (39.0-53.0) % MCV (80.0-100.0) fL MCH (25.0-35.0) pg MCHC (31.0-37.0) g/dL RDW (11.5-15.5) % Plt Count (150-450) k/uL Neutrophils % % Lymphocytes % % Monocytes % % Eosinophils % % Basophils % % Neutrophils # (1.3-7.7) k/uL Lymphocytes # (1.0-4.8) k/uL Monocytes # (0-1.0) k/uL Eosinophils # (0-0.7) k/uL Basophils # (0-0.2) k/uL PT 12.5 H (9.0-12.0) sec INR 1.3 H (<1.2) APTT 29.5 (22.0-30.0) sec D-Dimer 3.15 H (<0.60) mg/L FEU Sodium (137-145) mmol/L Potassium (3.5-5.1) mmol/L Chloride (98-107) mmol/L Carbon Dioxide (22-30) mmol/L Anion Gap mmol/L BUN (9-20) mg/dL Creatinine (0.66-1.25) mg/dL Est GFR (CKD-EPI)AfAm (>60 ml/min/1.73 sqM) Est GFR (CKD-EPI)NonAf (>60 ml/min/1.73 sqM) Glucose (74-99) mg/dL Calcium (8.4-10.2) mg/dL Magnesium (1.6-2.3) mg/dL Total Bilirubin (0.2-1.3) mg/dL AST (17-59) U/L ALT (21-72) U/L Alkaline Phosphatase (38-126) U/L Total Creatine Kinase (55-170) U/L CK-MB (CK-2) (0.0-2.4) ng/mL CK-MB (CK-2) Rel Index Troponin I (0.000-0.034) ng/mL NT-Pro-B Natriuret Pep 3390 pg/mL Total Protein (6.3-8.2) g/dL Albumin (3.5-5.0) g/dL Disposition Time of Disposition: 04:19 <John Nicole - Last Filed: 04/05/18 12:05> <Alexandre Garrett - Last Filed: 04/06/18 20:18> Clinical Impression: Pleural effusion, Shortness of breath, CHF (congestive heart failure) Disposition: ADMITTED IP TO THIS HOSP
[2018-04-04 01:42] LABS: Basophils % (A) 0 %; Eosinophils % (A) 0 %; HCT 39.3 % (39.0-53.0); HGB 12.1 gm/dL (13.0-17.5); Lymphocytes % (A) 6 %; MCH 29.1 pg (25.0-35.0); MCHC 30.8 g/dL (31.0-37.0); MCV 94.5 fL (80.0-100.0); Monocytes # (A) 0.9 k/uL (0-1.0); Monocytes % (A) 6 %; Neutrophils # (A) 13.2 k/uL (1.3-7.7); Neutrophils % (A) 87 %; Platelet Count 253 k/uL (150-450); RBC 4.16 m/uL (4.30-5.90); RDW 14.3 % (11.5-15.5); WBC 15.2 k/uL (3.8-10.6)
[2018-04-04 01:56] LABS: D-Dimer 3.15 mg/L FEU (<0.60); INR 1.3 (<1.2); Partial Thromboplastin Time 29.5 sec (22.0-30.0); Prothrombin Time 12.5 sec (9.0-12.0)
[2018-04-04 01:58] LABS: Albumin 3.4 g/dL (3.5-5.0); Calcium 9.5 mg/dL (8.4-10.2); Magnesium 2.1 mg/dL (1.6-2.3); Potassium 5.1 mmol/L (3.5-5.1); Total Bilirubin 0.9 mg/dL (0.2-1.3); Total Protein 6.2 g/dL (6.3-8.2)
--- NOTE | 2018-04-04 02:02 | XR ---
EXAMINATION TYPE: XR chest 2V DATE OF EXAM: 04/04/2018 COMPARISON: 01/16/2018 HISTORY: Chest pain TECHNIQUE: Frontal and lateral views of the chest are obtained. FINDINGS: There is blunting of the costophrenic angles. Heart is enlarged. Thoracic aorta is atherom atous. There is no heart failure. There are chest leads. The bony thorax appears intact. There is keila rowing of subacromial joint spaces with impingement. IMPRESSION: New bilateral pleural effusions compared to old exam. No heart failure seen. Lower lobe pneumonia cannot be entirely excluded.
[2018-04-04 02:10] LABS: Creatine Kinase MB 0.8 ng/mL (0.0-2.4)
[2018-04-04 02:22] LABS: Troponin I 0.082 ng/mL (0.000-0.034)
[2018-04-04] MEDS ORDERED: ENOXAPARIN 100 MG/ML SYRINGE SQ STA (03:20)
[2018-04-04] MEDS: FUROSEMIDE 10 MG/ML 4 ML VIAL IV SCH ×2 (03:29→16:44)
[2018-04-04 08:35] LABS: Creatine Kinase MB 0.8 ng/mL (0.0-2.4)
[2018-04-04 08:43] LABS: Troponin I 0.069 ng/mL (0.000-0.034)
[2018-04-04] MEDS ORDERED: NON-FORMULARY DRUG (Ubidecarenone [Co Q-10] 100 MG) PO SCH (09:00)
[2018-04-04] MEDS ORDERED: LISINOPRIL 20 MG TAB PO SCH (09:00)
[2018-04-04] MEDS: ALLOPURINOL 300 MG TAB PO SCH (09:05)
[2018-04-04] MEDS: amLODIPine 5 MG TAB PO SCH (09:06)
[2018-04-04] MEDS: CARVEDILOL 12.5 MG TAB PO SCH ×2 (09:06→16:58)
[2018-04-04] MEDS: APIXABAN 2.5 MG TABLET PO SCH ×2 (09:06→21:54)
[2018-04-04] MEDS: ASPIRIN 81 MG PO SCH (09:09)
[2018-04-04] MEDS ORDERED: INFLUENZA VACCINE (6 MOS+) 60 MCG/0.5 ML SYRINGE IM ONE (10:12)
--- NOTE | 2018-04-04 12:01 | NM ---
EXAMINATION TYPE: NM pul vent and perfuse DATE OF EXAM: 04/04/2018 COMPARISON: NONE HISTORY: Shortness of breath TECHNIQUE: Utilizing inhalation of 35.2 mCi Tc 99m DTPA aerosol and intravenous injection of 4.92 mC i of Tc 99m MAA, ventilation and perfusion images are acquired post injection in multiple projections . FINDINGS: There is some moderate central accumulation of radiotracer compatible with COPD. No evidence for vent ilation/perfusion mismatch however. IMPRESSION: Low probability for pulmonary embolism.
[2018-04-04] MEDS: MUPIROCIN 2% OINT 22 GM TUBE TOPICAL SCH ×3 (13:56→21:48)
[2018-04-04 14:08] VITALS: BMI 26.1
[2018-04-04 14:27] LABS: Creatine Kinase MB 0.8 ng/mL (0.0-2.4)
[2018-04-04 14:35] LABS: Troponin I 0.042 ng/mL (0.000-0.034)
--- NOTE | 2018-04-04 16:38 | P.CRDCN ---
History of Present Illness Consult date: 04/04/18 Requesting physician: Genaro Perez Consult reason: congestive heart failure Chief complaint: shortness of breath History of present illness: this is an 87-year-old gentleman with past medical history significant for hypertension, hyperlipidemia,chronic persistent atrial fibrillation who follows with a health information administrator at [place]. He presented to the hospital with symptoms of shortness of breath which she states that been progressively getting worse over the past 4 days or so. He has been told in the past to have congestive heart failure. He does have prior history of smoking, quit over 30 years ago. He does state that he has history of aortic stenting in the past.chest x-ray on arrival here showed new bilateral pleural effusions as compared with old exam, no acute heart failure noted. EKG on arrival here showed atrial fibrillation with a controlled ventricular response. Lung perfusion scan was performed which was low probability for pulmonary embolism. blood pressure 112/70 on arrival, heart rate in the 70s, 94% on room air.White blood cell count 15.2, hemoglobin 12.1, platelet count 253. D-dimer 3.1.sodium 131, potassium 5.1, BUN 47, creatinine 1.5.BNP level 3390.troponin 0.08, 0.06, 0.04. Patient has been initiated on IV Lasix in the emergency room. At the time of my examination, he does state that he is feeling somewhat better than his presentation here Past Medical History Past Medical History: Atrial Fibrillation, Hyperlipidemia, Hypertension, Vascular Disorder Additional Past Medical History / Comment(s): AAA with stent graft, pt denies hx of CHF but is in PMH dated 2011, balance issues. History of Any Multi-Drug Resistant Organisms: None Reported Past Surgical History: Appendectomy, Joint Replacement Additional Past Surgical History / Comment(s): Aortic stent graft at [facility], total right hip arthroplasty, colonoscopy Past Anesthesia/Blood Transfusion Reactions: No Reported Reaction Smoking Status: Former smoker - Past Family History Father Family Medical History: No Reported History Additional Family Medical History / Comment(s): Father of natural causes at the age of 92 yrs. Mother Family Medical History: No Reported History Additional Family Medical History / Comment(s): Mother of natural causes at the age of 89yrs. Medications and Allergies Home Medications Medication Instructions Recorded Confirmed Type Allopurinol [Zyloprim] 300 mg PO DAILY 10/16/17 04/04/18 History Apixaban [Eliquis] 2.5 mg PO BID 10/16/17 04/04/18 History Aspirin EC [Ecotrin Low Dose] 81 mg PO DAILY 10/16/17 04/04/18 History Carvedilol [Coreg] 25 mg PO BID 10/16/17 04/04/18 History Enalapril [Vasotec] 20 mg PO BID 10/16/17 04/04/18 History Ubidecarenone [Co Q-10] 100 mg PO DAILY 10/16/17 04/04/18 History amLODIPine [Norvasc] 5 mg PO DAILY 10/16/17 04/04/18 History Hydrochlorothiazide [Hydrodiuril] 12.5 mg PO DAILY 04/04/18 04/04/18 History Lutein 10 mg PO DAILY 04/04/18 04/04/18 History Allergies Allergy/AdvReac Type Severity Reaction Status Date / Time No Known Allergies Allergy Verified 01/16/18 16:12 Physical Exam Vitals: Vital Signs Temp Pulse Pulse Resp BP BP Pulse Ox 04/04/18 15:52 97.5 F L 68 18 106/58 94 L 04/04/18 15:05 68 18 04/04/18 13:42 97.0 F L 68 18 109/62 94 L 04/04/18 13:37 64 18 04/04/18 13:00 98.0 F 84 16 106/64 98 04/04/18 08:19 98.5 F 88 18 113/76 98 04/04/18 07:09 85 16 110/68 92 L 04/04/18 04:47 80 16 119/67 95 04/04/18 03:26 76 04/04/18 03:17 80 04/04/18 03:01 76 16 04/04/18 01:27 90 L 04/04/18 00:24 98.5 F 76 20 122/73 94 L Intake and Output 04/04/18 04/04/18 04/04/18 06:59 14:59 22:59 Intake Total 440 Output Total 225 125 Balance -225 315 Intake: Oral 440 Output: Urine 225 125 Other: Voiding Method Urinal Urinal # Voids 1 1 Weight 89.811 kg 89.811 kg PHYSICAL EXAMINATION: GENERAL:87-year-old gentleman in no acute distress at the time of my HEENT: Head is atraumatic, normocephalic. Pupils equal, round. Sclera anicteric. Conjunctiva are clear. Mucous membranes of the mouth are moist. Neck is supple. There is no elevated jugular venous pressure.no carotid bruit is heard. HEART EXAMINATION:heart S1 and S2 irregularly irregular a systolic murmur is heard. CHEST EXAMINATION:lungs reveal diminished. She to bilateral bases with fine rales noted bilaterally ABDOMEN: [ Soft, nontender. Bowel sounds are heard. No organomegaly noted]. EXTREMITIES:[ 2+ peripheral pulses with trace evidence of peripheral edema and no calf tenderness noted]. NEUROLOGIC [patient is awake, alert and oriented X3.] . Results 04/04/18 00:25 04/04/18 00:25 Cardiac Enzymes 04/04/18 04/04/18 04/04/18 Range/Units 00:25 00:25 06:35 AST 27 (17-59) U/L CK-MB (CK-2) 0.8 0.8 (0.0-2.4) ng/mL Troponin I 0.082 H* 0.069 H* (0.000-0.034) ng/mL 04/04/18 Range/Units 13:07 AST (17-59) U/L CK-MB (CK-2) 0.8 (0.0-2.4) ng/mL Troponin I 0.042 H* (0.000-0.034) ng/mL Coagulation 04/04/18 Range/Units 00:25 PT 12.5 H (9.0-12.0) sec APTT 29.5 (22.0-30.0) sec CBC 04/04/18 Range/Units 00:25 WBC 15.2 H (3.8-10.6) k/uL RBC 4.16 L (4.30-5.90) m/uL Hgb 12.1 L (13.0-17.5) gm/dL Hct 39.3 (39.0-53.0) % Plt Count 253 (150-450) k/uL Comprehensive Metabolic Panel 04/04/18 Range/Units 00:25 Sodium 137 (137-145) mmol/L Potassium 5.1 (3.5-5.1) mmol/L Chloride 102 (98-107) mmol/L Carbon Dioxide 27 (22-30) mmol/L BUN 47 H (9-20) mg/dL Creatinine 1.58 H (0.66-1.25) mg/dL Glucose 130 H (74-99) mg/dL Calcium 9.5 (8.4-10.2) mg/dL AST 27 (17-59) U/L ALT 34 (21-72) U/L Alkaline Phosphatase 72 (38-126) U/L Total Protein 6.2 L (6.3-8.2) g/dL Albumin 3.4 L (3.5-5.0) g/dL Current Medications Generic Name Dose Route Start Last Admin Trade Name Marioq PRN Reason Stop Dose Admin Allopurinol 300 mg 04/04/18 09:00 04/04/18 09:05 Zyloprim PO 300 mg DAILY JAMAR Administration Amlodipine Besylate 5 mg 04/04/18 09:00 04/04/18 09:06 Norvasc PO 5 mg DAILY JAMAR Administration Apixaban 2.5 mg 04/04/18 09:00 04/04/18 09:06 Eliquis PO 2.5 mg BID JAMAR Administration Aspirin 81 mg 04/04/18 09:00 04/04/18 09:09 Aspirin PO 81 mg DAILY JAMAR Administration Atorvastatin Calcium 40 mg 04/04/18 21:00 Lipitor PO HS [facility] Carvedilol 25 mg 04/04/18 07:30 04/04/18 09:06 Coreg PO 25 mg BID-W/MEALS JAMAR Administration Furosemide 40 mg 04/04/18 03:15 04/04/18 03:29 Lasix IV 40 mg Q12H JAMAR Administration Lisinopril 40 mg 04/04/18 09:00 04/04/18 09:06 Zestril PO 40 mg BID [facility] Administration Mupirocin 1 applic 04/04/18 09:00 04/04/18 13:56 Bactroban Oint TOPICAL Not Given TID [facility] Sodium Chloride 10 ml 04/04/18 09:00 04/04/18 09:04 Saline Flush IV 10 ml BID JAMAR Administration Intake and Output 04/04/18 04/04/18 04/04/18 06:59 14:59 22:59 Intake Total 440 Output Total 225 125 Balance -225 315 Intake: Oral 440 Output: Urine 225 125 Other: Voiding Method Urinal Urinal # Voids 1 1 Weight 89.811 kg 89.811 kg Patient Weight 04/05/18 06:59 Weight 89.811 kg 04/04/18 00:25 04/04/18 00:25 EKG Interpretations (text) EKG shows atrial fibrillation with a controlled ventricular response Assessment and Plan Plan: assessment and plan #1 congestive heart failure, LV function unknown #2 hypertension #3 hyperlipidemia #4 chronic persistent atrial fibrillation, on Eliquis for anticoagulation #5 prior aortic stenting, exact details unavailable Plan We will obtain an echocardiogram with Doppler study. Continue current dose of IV Lasix at present. Continue to monitor intake and output along with daily weights and daily lytes BUN and creatinine. was also initiated on 40 mg twice a day of lisinopril which we will cut down to 40 mg daily. DNP note has been reviewed, I agree with a documented findings and plan of care. Patient was seen and examined.
[2018-04-04] MEDS: FUROSEMIDE 10 MG/ML 10 ML VIAL IV SCH (16:58)
--- NOTE | 2018-04-04 19:01 | ECHOF ---
Referral Reason:CHF MEASUREMENTS -------- HEIGHT: 182.9 cm WEIGHT: 89.8 kg BP: IVSd: 1.4 cm (0.6 - 1.1) LVIDd: 3.9 cm (3.9 - 5.3) LVPWd: 1.4 cm (0.6 - 1.1) IVSs: 1.6 cm LVIDs: 2.3 cm LVPWs: 2.2 cm LA Diam: 4.5 cm (2.7 - 3.8) LAESV Index (A-L): 72.16 ml/m Ao Diam: 3.7 cm (2.0 - 3.7) AV Cusp: 1.5 cm (1.5 - 2.6) MV E Boris: 0.63 m/s MV DecT: 279 ms MV A Boris: 0.22 m/s MV E/A Ratio: 2.86 RAP: 5.00 mmHg RVSP: 26.07 mmHg FINDINGS -------- Sinus rhythm. This was a technically adequate study. The left ventricular size is normal. There is moderate concentric left ventricular hypertrophy. O verall left ventricular systolic function is low-normal with, an EF between 50 - 55 %. The right ventricle is normal in size. The left atrium is mildly dilated. LA is severely dilated >40 ml/m2 The right atrial size is normal. There is mild aortic valve sclerosis. Mild mitral annular calcification present. No mitral regurgitation. Mild tricuspid regurgitation present. There is no evidence of pulmonary hypertension. The right v entricular systolic pressure, as measured by Doppler, is 26.07mmHg. There is no pulmonic regurgitation present. The aortic root size is normal. There is a moderate, generalized pericardial effusion present. CONCLUSIONS -------- 1. The left ventricular size is normal. 2. There is moderate concentric left ventricular hypertrophy. 3. Overall left ventricular systolic function is low-normal with, an EF between 50 - 55 %. 4. The right ventricle is normal in size. 5. The left atrium is mildly dilated. 6. LA is severely dilated >40 ml/m2 7. The right atrial size is normal. 8. There is mild aortic valve sclerosis. 9. Mild mitral annular calcification present. 10. No mitral regurgitation. 11. Mild tricuspid regurgitation present. 12. There is no evidence of pulmonary hypertension. 13. The right ventricular systolic pressure, as measured by Doppler, is 26.07mmHg. 14. There is no pulmonic regurgitation present. 15. There is a moderate, generalized pericardial effusion present. SYSTEM SUPPORT ADMINISTRATOR: Judy Dillon RDCS
[2018-04-04] MEDS: ATORVASTATIN 40 MG TAB PO SCH (21:47)
[2018-04-05] MEDS: FUROSEMIDE 10 MG/ML 10 ML VIAL IV SCH ×2 (02:00→13:21)
[2018-04-05] MEDS: CARVEDILOL 12.5 MG TAB PO SCH ×2 (06:44→16:13)
--- NOTE | 2018-04-05 08:26 | US ---
EXAMINATION TYPE: US renals and bladder DATE OF EXAM: 04/05/2018 COMPARISON: NONE CLINICAL HISTORY: renal failure. renal failure EXAM MEASUREMENTS: Right Kidney: 12.9 x 5.7 x 5.0 cm Left Kidney: 11.6 x 5.4 x 4.9 cm Right Kidney: multiple cystic areas noted, largest = 7.0 x 6.1 x 6.2cm Left Kidney: multiple cystic areas noted, largest = 6.3 x 5.0 x 5.7cm Bladder: appears wnl Bilateral Jets seen: no There is no evidence for hydronephrosis at this point in time. No nephrolithiasis is seen. No jovan s are identified. The urinary bladder is anechoic. Bilateral ureteral jets are seen. IMPRESSION: Bilateral cystic lesions identified without suspicious solid mass noted.
--- NOTE | 2018-04-05 08:40 | HP ---
HISTORY AND PHYSICAL DATE OF ADMISSION: 04/04/2018 DATE OF SERVICE: 04/04/2018 PRESENTING COMPLAINT: Short of breath. HISTORY OF PRESENTING COMPLAINT: A very pleasant 87-year-old patient who follows with Dr. Cedeno. Chronic stable medical conditions include atrial fibrillation, hypertension, hyperlipidemia, abdominal aortic aneurysm with A stent graft. Patient for 1 or 2 days noted that she was become increasingly short of breath, more so when lying down and somewhat better on sitting up. Denies any obvious edema. There is no chest pain. No cough. No fever or chills. Some decreased appetite, tired, run down. The patient admitted for the same, felt to be in congestive heart failure, given IV Lasix with some improvement. REVIEW OF SYSTEMS: CONSTITUTIONAL: Tired. HEENT: Decreased hearing. RESPIRATORY: As above. CARDIOVASCULAR: No chest pain. GASTROINTESTINAL: None. GENITOURINARY: None. MUSCULOSKELETAL: Some pain in the joints. DERMATOLOGICAL: None. HEMATOLOGICAL: None. LYMPHATIC: None. PSYCHIATRY: Slightly forgetful. NEUROLOGICAL: None. PAST MEDICAL HISTORY: Atrial fibrillation, hyperlipidemia, hypertension, AAA stent graft. PAST SURGICAL HISTORY: Appendectomy, joint replacement, aortic stent graft at [facility], total right hip arthroplasty. SOCIAL HISTORY: . Uses a walker. Served in the [employer]. Did work at [employer]. Patient smoked for about 8 years, stopped in 1984. Alcohol, none. FAMILY HISTORY: Father of natural cause at age of 92. HOME MEDICATIONS: 1. Lutein 10 mg p.o. daily. 2. Hydrochlorothiazide 12.5 p.o. daily. 3. Norvasc 5 mg p.o. daily. 4. CO-Q 10 one hundred mg p.o. daily. 5. Vasotec 20 mg p.o. b.i.d. 6. Coreg 25 mg p.o. b.i.d. 7. Aspirin 81 mg p.o. daily. 8. Eliquis 2.5 mg p.o. b.i.d. 9. Allopurinol 300 mg p.o. daily. ALLERGIES: None. PHYSICAL EXAMINATION: Vital signs on presentation, temperature 98.5, pulse 76, respiration 20, blood pressure 122/73, pulse ox 94% on room air. GENERAL APPEARANCE: Average build, lying in bed, tired-appearing. EYES: Pupils equal, conjunctivae normal. HEENT: External appearance of nose and ears normal. Oral cavity normal. NECK: JVD raised. Mass not palpable. RESPIRATORY: Effort increased. LUNGS: Decreased breath sounds. CARDIOVASCULAR: First and second sounds are normal. No edema. ABDOMEN: Soft, nontender. Liver and spleen not palpable. LYMPHATIC: No lymph node palpable in neck or axillae. PSYCHIATRY: Alert and oriented x3. Mood and affect normal. NEUROLOGICAL: Pupils equal. Cranial nerves grossly intact. Power and sensation grossly intact. MUSCULOSKELETAL: Evidence of osteoarthritis especially in the hands. INVESTIGATIONS: White count 15.2, hemoglobin 12.1, potassium 5.1, BUN 47, creatinine 1.58. Troponin 0.08, 0.069, 0.042. Patient's BUN and creatinine on 01/16/18 was 36 and 0.90, proBNP . Chest x-ray film personally reviewed by me shows cardiomegaly in a water bottle shape. EKG tracing personally reviewed by me shows atrial fibrillation, rate control 82, nonspecific ST-segment changes. A 2D echocardiogram showing EF of 40%-45%. LA severely dilated, moderate generalized pericardial effusion. ASSESSMENT: 1. Moderate generalized pericardial effusion symptomatic, cause unclear. 2. Bilateral pleural effusion, probably from increased end-diastolic pressure. 3. Persistent atrial fibrillation, rate controlled. 4. Hyperlipidemia. 5. Essential hypertension. 6. Chronic gait dysfunction, uses a walker. 7. Primary osteoarthritis. 8. Troponin leak in a setting of renal failure, acute versus chronic, unknown at this time. PLAN: Home medications are resumed. Patient is continued on anticoagulation Eliquis. Patient was started on IV Lasix. Cardiology was consulted. Will keep a close eye on patient's renal function. Care was discussed with the patient. Also get a nephrology opinion. No evidence of acute coronary artery syndrome. MMODL / IJN: [id number] /
[2018-04-05] MEDS ORDERED: LISINOPRIL 20 MG TAB PO SCH (09:00)
[2018-04-05] MEDS: ASPIRIN 81 MG PO SCH (10:04)
[2018-04-05] MEDS: APIXABAN 2.5 MG TABLET PO SCH ×2 (10:04→21:46)
[2018-04-05] MEDS: ALLOPURINOL 300 MG TAB PO SCH (10:04)
--- NOTE | 2018-04-05 11:49 | P.PN ---
Subjective Progress Note Date: 04/05/18 Principal diagnosis: Congestive heart failure exacerbation This is a pleasant 87-year-old gentleman with a past medical history significant for chronic atrial fibrillation, hypertension, dyslipidemia, was admitted to the hospital with congestive heart failure exacerbation. On follow-up with him today, 04/05/2018, he is feeling better. He is slightly dizzy. The blood pressure has been in the 90s. I will cut down the dose of lisinopril as well as cut down the dose of Coreg. I would also cut down the dose of Lasix IV. He underwent an echocardiogram which revealed normal LV function with mild MR, mild TR, and normal pulmonary artery pressure. I recommended continue the Lasix for additional 24 hours and continue monitoring the kidney function and electrolytes and follow-up with the patient. Objective - Vital Signs Vital signs: Vital Signs Temp 98.3 F 04/05/18 09:32 Pulse 72 04/05/18 09:32 Resp 16 04/05/18 09:32 BP 81/56 04/05/18 09:32 Pulse Ox 94 L 04/05/18 09:32 Intake & Output 04/04/18 04/05/18 04/05/18 18:59 06:59 18:59 Intake Total 680 10 240 Output Total 350 300 400 Balance 330 -290 -160 Weight 89.811 kg Intake: IV 10 .9 10 Oral 680 240 Output: Urine 350 300 400 Other: Voiding Method Urinal Urinal # Voids 1 - Constitutional General appearance: Present: no acute distress - Respiratory Respiratory: bilateral: diminished - Cardiovascular Rhythm: irregularly irregular Heart sounds: normal: S1, S2 - Labs CBC & Chem 7: 04/04/18 00:25 04/05/18 06:32 Labs: Abnormal Lab Results - Last 24 Hours (Table) 04/04/18 04/05/18 Range/Units 13:07 06:32 BUN 51 H (9-20) mg/dL Creatinine 1.35 H (0.66-1.25) mg/dL Glucose 116 H (74-99) mg/dL Troponin I 0.042 H* (0.000-0.034) ng/mL Microbiology - Last 24 Hours (Table) 04/04/18 00:25 Blood Culture - Preliminary Blood No Growth after 24 hours Assessment and Plan Assessment: Assessment #1 congestive heart failure exacerbation secondary to diastolic dysfunction #2 chronic atrial fibrillation was controlled heart rate. #3 hypotension Plan #1 decrease the dose of Coreg and decrease the dose of lisinopril #2 continue IV diuretics with decreasing the dose of Lasix #3 continue monitor the kidney function and electrolytes #4 continue oral anticoagulation #5 follow-up with the patient. Thank you for allowing us participate in his care and we'll continue following up with the patient
--- NOTE | 2018-04-05 12:53 | P.NPCON ---
History of Present Illness - Reason for Consult acute renal failure - History of Present Illness Reason for consultation: Acute kidney injury History of present illness: Patient is a 87-year-old male seen in renal consultation for acute kidney injury. Creatinine was 1.58 on admission and is improved to 1.35 today. Patient presented to the hospital with dyspnea. Patient states he wasn't able to lay flat. He's currently receiving IV diuretics. Overall his symptoms have improved. Currently denies any active chest pain or shortness of breath. He admits to good urine output. Denies use of NSAIDs. Denies any prior history of kidney disease. His blood pressure has been in the systolic 80s to 90s. Echocardiogram revealed a preserved ejection fraction. VQ scan revealed low probability of PE. No evidence of hydronephrosis is noted on renal ultrasound. No vomiting or diarrhea. Oral intake is fair. Vital signs are stable. General: The patient appeared well nourished and normally developed. HEENT: Head exam is unremarkable. Neck is without jugular venous distension. LUNGS: Lungs are clear to auscultation and percussion. Breath sounds decreased. HEART: Rate and Rhythm are regular. First and second heart sounds normal. No murmurs, rubs or gallops. ABDOMEN: Abdominal exam reveals normal bowel sounds. Non-tender and non- distended. No evidence of peritonitis. EXTREMITITES: No clubbing, cyanosis, or edema. Past Medical History Past Medical History: Coronary Artery Disease (CAD), Hyperlipidemia, Hypertension Additional Past Medical History / Comment(s): aortic stent, History of Any Multi-Drug Resistant Organisms: None Reported Past Surgical History: Heart Catheterization With Stent, Orthopedic Surgery Additional Past Surgical History / Comment(s): right hip Past Anesthesia/Blood Transfusion Reactions: No Reported Reaction Past Psychological History: No Psychological Hx Reported Smoking Status: Former smoker Past Alcohol Use History: None Reported Past Drug Use History: None Reported - Past Family History Father Family Medical History: No Reported History Additional Family Medical History / Comment(s): Father of natural causes at the age of 92 yrs. Mother Family Medical History: No Reported History Additional Family Medical History / Comment(s): Mother of natural causes at the age of 89yrs. Medications and Allergies Home Medications Medication Instructions Recorded Confirmed Type Allopurinol [Zyloprim] 300 mg PO DAILY 10/16/17 04/04/18 History Apixaban [Eliquis] 2.5 mg PO BID 10/16/17 04/04/18 History Aspirin EC [Ecotrin Low Dose] 81 mg PO DAILY 10/16/17 04/04/18 History Carvedilol [Coreg] 25 mg PO BID 10/16/17 04/04/18 History Enalapril [Vasotec] 20 mg PO BID 10/16/17 04/04/18 History Ubidecarenone [Co Q-10] 100 mg PO DAILY 10/16/17 04/04/18 History amLODIPine [Norvasc] 5 mg PO DAILY 10/16/17 04/04/18 History Hydrochlorothiazide [Hydrodiuril] 12.5 mg PO DAILY 04/04/18 04/04/18 History Lutein 10 mg PO DAILY 04/04/18 04/04/18 History Allergies Allergy/AdvReac Type Severity Reaction Status Date / Time No Known Allergies Allergy Verified 01/16/18 16:12 Physical Exam Vitals: Vital Signs Temp Pulse Pulse Resp BP BP Pulse Ox 04/05/18 09:32 98.3 F 72 16 81/56 94 L 04/05/18 04:00 98.4 F 77 18 104/69 94 L 04/05/18 00:00 98.0 F 76 18 91/63 92 L 04/04/18 20:00 98.4 F 75 18 96/72 92 L 04/04/18 15:52 97.5 F L 68 18 106/58 94 L 04/04/18 15:05 68 18 04/04/18 13:42 97.0 F L 68 18 109/62 94 L 04/04/18 13:37 64 18 04/04/18 13:00 98.0 F 84 16 106/64 98 Intake and Output 04/04/18 04/05/18 04/05/18 22:59 06:59 14:59 Intake Total 680 10 240 Output Total 425 400 Balance 255 10 -160 Intake: IV 10 .9 10 Oral 680 240 Output: Urine 425 400 Other: Voiding Method Urinal # Voids 1 Results - Lab Results Most recent lab results Calcium 9.0 mg/dL (8.4-10.2) 04/05/18 06:32 Magnesium 2.1 mg/dL (1.6-2.3) 04/04/18 00:25 04/04/18 00:25 04/05/18 06:32 Assessment and Plan Plan: Assessment: 1. Nonoliguric acute kidney injury mostly prerenal secondary to cardiorenal syndrome. Creatinine 1.58 on admission and is down to 1.35 today. No evidence of hydronephrosis noted on renal ultrasound. Baseline creatinine near 1. 2. Hypotension secondary to diuresis and antihypertensives. 3. Diastolic CHF. 4. Dyspnea secondary to volume overload. Improved. Plan: Decrease Lasix to 40 mg IV twice daily. Can likely transition to oral diuretics tomorrow. Check urinalysis. Hold YESENIA inhibitor for now due to hypotension. Repeat electrolytes in the morning. Thank you for the consultation. I will continue to follow the patient with you during his hospital stay.
[2018-04-05] MEDS: MUPIROCIN 2% OINT 22 GM TUBE TOPICAL SCH ×3 (13:25→21:48)
[2018-04-05] MEDS: amLODIPine 5 MG TAB PO SCH (14:56)
[2018-04-05] MEDS ORDERED: FUROSEMIDE 10 MG/ML 10 ML VIAL IV SCH (16:00)
[2018-04-05 17:10] LABS: Appearance,Urine Clear (Clear); Bilirubin,Urine Negative (Negative); Blood,Urine Negative (Negative); Color,Urine Yellow; Glucose,Urine (UA) Negative (Negative); Ketones,Urine Negative (Negative); Leukocyte Esterase,Urine Negative (Negative); Nitrite,Urine Negative (Negative); Protein,Urine Negative (Negative); Specific Gravity,Urine 1.016 (1.001-1.035); Urobilinogen,Urine <2.0 mg/dL (<2.0)
--- NOTE | 2018-04-05 18:43 | PN ---
PROGRESS NOTE DATE OF SERVICE: 04/05/2018 PRESENTING COMPLAINT: Short of breath. INTERVAL HISTORY: Patient with multiple medical problems presented with shortness of breath, orthopnea, found to be in acute congestive heart failure, found to have pericardial effusion and also acute renal failure. Feeling a bit better. Breathing is better. Tired. Did tolerate some diet. REVIEW OF SYSTEMS: Done for constitutional, cardiovascular, GI, pulmonary; relevant findings as above. CURRENT MEDICATIONS: Reviewed. They include: 1. IV Lasix 40 mg q.12. 2. Coreg 12.5 p.o. b.i.d. 3. Eliquis. PHYSICAL EXAMINATION: Temperature 98.3, pulse 84, respiration 16, blood pressure 86/51, pulse ox 96% on 2 L. GENERAL APPEARANCE: Sitting up. Awake. EYES: Pupils equal. Conjunctivae normal. HEENT: External appearance of nose and ears normal. Oral cavity normal. NECK: JVD not raised. Mass not palpable. RESPIRATORY: Effort increased. LUNGS: Decreased breath sounds. CARDIOVASCULAR: Heart sounds irregular. No edema. ABDOMEN: Soft, nontender. Liver and spleen not palpable. PSYCHIATRY: Alert and oriented x3. Mood and affect normal. INVESTIGATIONS: Potassium 4, BUN 15, creatinine 1.35. ASSESSMENT: 1. Acute congestive heart failure exacerbation from systolic dysfunction, ejection fraction 40% to 45%. 2. Moderate pericardial effusion, cause unknown. 3. Bilateral pleural effusion, probably from congestive heart failure. 4. Persistent atrial flutter/fibrillation, rate controlled. 5. Hyperlipidemia. 6. Essential hypertension. 7. Chronic gait dysfunction. Uses a walker. 8. Acute renal failure, likely prerenal. 9. Primary osteoarthritis. 10.Troponin leak in the setting of renal failure; does not appear to be acute coronary syndrome. PLAN: Continue current medication and treatment plan. Creatinine has started to come down. The patient was seen by Dr. Traylor. Patient's dose of diuretics was being cut back and also the dose of Coreg and lisinopril. Will follow closely. MMODL / IJN: [id number] /
[2018-04-05] MEDS: ATORVASTATIN 40 MG TAB PO SCH (21:44)
[2018-04-06] MEDS: FUROSEMIDE 10 MG/ML 4 ML VIAL IV SCH ×3 (00:36→21:04)
[2018-04-06 06:09] LABS: Basophils % (A) 0 %; Eosinophils # (A) 0.2 k/uL (0-0.7); Eosinophils % (A) 2 %; HCT 32.4 % (39.0-53.0); HGB 10.7 gm/dL (13.0-17.5); Lymphocytes # (A) 0.8 k/uL (1.0-4.8); Lymphocytes % (A) 7 %; MCH 30.7 pg (25.0-35.0); MCV 92.8 fL (80.0-100.0); Mean Platelet Volume 7.6; Monocytes # (A) 0.6 k/uL (0-1.0); Monocytes % (A) 5 %; Neutrophils # (A) 9.7 k/uL (1.3-7.7); Neutrophils % (A) 84 %; Platelet Count 213 k/uL (150-450); RBC 3.49 m/uL (4.30-5.90); RDW 14.4 % (11.5-15.5); WBC 11.5 k/uL (3.8-10.6)
[2018-04-06 06:20] LABS: Calcium 8.9 mg/dL (8.4-10.2); Magnesium 2.1 mg/dL (1.6-2.3); Potassium 4.3 mmol/L (3.5-5.1)
[2018-04-06] MEDS: ASPIRIN 81 MG PO SCH (08:49)
[2018-04-06] MEDS: ALLOPURINOL 300 MG TAB PO SCH (08:49)
[2018-04-06] MEDS: MUPIROCIN 2% OINT 22 GM TUBE TOPICAL SCH ×3 (08:50→20:59)
[2018-04-06] MEDS: APIXABAN 2.5 MG TABLET PO SCH ×2 (08:50→21:04)
[2018-04-06] MEDS ORDERED: LISINOPRIL 20 MG TAB PO SCH (09:00)
--- NOTE | 2018-04-06 11:47 | P.PN ---
Subjective Progress Note Date: 04/06/18 (Nephrology) Principal diagnosis: Seen and examined for the follow-up of acute kidney injury. Lying comfortable in the bed. No nausea vomiting or diarrhea. Objective - Vital Signs Vital signs: Vital Signs Temp 98.5 F 04/06/18 08:00 Pulse 112 H 04/06/18 08:00 Resp 18 04/06/18 08:00 BP 97/66 04/06/18 08:00 Pulse Ox 96 04/06/18 08:00 Intake & Output 04/05/18 04/06/18 04/06/18 18:59 06:59 18:59 Intake Total 1200 10 Output Total 400 700 Balance 800 -700 10 Weight 94 kg Intake: IV 10 .9 10 Oral 1200 Output: Urine 400 700 Other: Voiding Method Urinal # Bowel Movements 1 - Exam No acute distress S1-S2 heard Lungs clear Trace edema - Labs CBC & Chem 7: 04/06/18 05:51 04/06/18 05:51 Labs: Abnormal Lab Results - Last 24 Hours (Table) 04/06/18 04/06/18 Range/Units 05:51 05:51 WBC 11.5 H (3.8-10.6) k/uL RBC 3.49 L (4.30-5.90) m/uL Hgb 10.7 L (13.0-17.5) gm/dL Hct 32.4 L (39.0-53.0) % Neutrophils # 9.7 H (1.3-7.7) k/uL Lymphocytes # 0.8 L (1.0-4.8) k/uL Sodium 134 L (137-145) mmol/L BUN 63 H (9-20) mg/dL Creatinine 1.38 H (0.66-1.25) mg/dL Glucose 110 H (74-99) mg/dL Microbiology - Last 24 Hours (Table) 04/04/18 00:25 Blood Culture - Preliminary Blood No Growth after 48 hours Assessment and Plan Assessment: #1 acute kidney injury secondary to cardiorenal syndrome. Creatinine stable and improving #2 diastolic CHF #3 hypotension #4 volume overload improved #5 hyponatremia Plan: #1 currently on Lasix 40 mg IV twice a day. Change it to Demadex 20 mg by mouth daily tomorrow #2 avoid nephrotoxic agents and hypotensive episodes #3 supportive care
--- NOTE | 2018-04-06 13:57 | P.PN ---
Subjective Progress Note Date: 04/06/18 This is an 87-year-old gentleman with past medical history significant for hypertension, hyperlipidemia,chronic persistent atrial fibrillation who follows with a emergency dispatch operator at [place]. He presented to the hospital with symptoms of shortness of breath which she states that been progressively getting worse over the past 4 days or so. He has been told in the past to have congestive heart failure. He does have prior history of smoking, quit over 30 years ago. He does state that he has history of aortic stenting in the past.chest x-ray on arrival here showed new bilateral pleural effusions as compared with old exam, no acute heart failure noted. EKG on arrival here showed atrial fibrillation with a controlled ventricular response. Lung perfusion scan was performed which was low probability for pulmonary embolism. blood pressure 112/70 on arrival, heart rate in the 70s, 94% on room air.White blood cell count 15.2, hemoglobin 12.1, platelet count 253. D-dimer 3.1.sodium 131, potassium 5.1, BUN 47, creatinine 1.5.BNP level 3390.troponin 0.08, 0.06, 0.04. Patient has been initiated on IV Lasix in the emergency room. At the time of my examination, he does state that he is feeling somewhat better than his presentation here. 04/06/2018 Patient seen and examined this morning, does state that he is feeling overall better today. Diuresing well overall. Continues to be on IV Lasix 40 mg every 12 hourly. Sodium 134, potassium 4.3, BUN 63, creatinine 1.3. Magnesium 2.1 Objective - Vital Signs Vital signs: Vital Signs Temp 97.7 F 04/06/18 12:00 Pulse 62 04/06/18 12:00 Resp 20 04/06/18 12:00 BP 81/51 04/06/18 12:00 Pulse Ox 95 04/06/18 12:00 Intake & Output 04/05/18 04/06/18 04/06/18 18:59 06:59 18:59 Intake Total 1200 190 Output Total 400 700 850 Balance 800 -700 -660 Weight 94 kg Intake: IV 10 .9 10 Oral 1200 180 Output: Urine 400 700 850 Other: Voiding Method Urinal # Voids 1 # Bowel Movements 1 - Exam PHYSICAL EXAMINATION: GENERAL:87-year-old gentleman in no acute distress at the time of my examination HEENT: Head is atraumatic, normocephalic. Pupils equal, round. Sclera anicteric. Conjunctiva are clear. Mucous membranes of the mouth are moist. Neck is supple. There is no elevated jugular venous pressure.no carotid bruit is heard. HEART EXAMINATION:heart S1 and S2 irregularly irregular a systolic murmur is heard. CHEST EXAMINATION:lungs reveal diminished. She to bilateral bases with fine rales noted bilaterally ABDOMEN: [ Soft, nontender. Bowel sounds are heard. No organomegaly noted]. EXTREMITIES:[ 2+ peripheral pulses with trace evidence of peripheral edema and no calf tenderness noted]. NEUROLOGIC [patient is awake, alert and oriented X3.] . - Labs CBC & Chem 7: 04/06/18 05:51 04/06/18 05:51 Labs: Abnormal Lab Results - Last 24 Hours (Table) 04/06/18 04/06/18 Range/Units 05:51 05:51 WBC 11.5 H (3.8-10.6) k/uL RBC 3.49 L (4.30-5.90) m/uL Hgb 10.7 L (13.0-17.5) gm/dL Hct 32.4 L (39.0-53.0) % Neutrophils # 9.7 H (1.3-7.7) k/uL Lymphocytes # 0.8 L (1.0-4.8) k/uL Sodium 134 L (137-145) mmol/L BUN 63 H (9-20) mg/dL Creatinine 1.38 H (0.66-1.25) mg/dL Glucose 110 H (74-99) mg/dL Microbiology - Last 24 Hours (Table) 04/04/18 00:25 Blood Culture - Preliminary Blood No Growth after 48 hours Assessment and Plan Plan: assessment and plan #1 congestive heart failure, LV function unknown #2 hypertension #3 hyperlipidemia #4 chronic persistent atrial fibrillation, on Eliquis for anticoagulation #5 prior aortic stenting, exact details unavailable Plan Echocardiogram with Doppler study was performed which revealed a normal left ventricular systolic function. We will continue current dose of IV Lasix, continue to monitor intake and output along with daily weights and daily lytes BUN and creatinine. DNP note has been reviewed, I agree with a documented findings and plan of care. Patient was seen and examined.
[2018-04-06] MEDS: CARVEDILOL 12.5 MG TAB PO SCH ×2 (14:29→17:32)
[2018-04-06] MEDS: ATORVASTATIN 40 MG TAB PO SCH (20:59)
--- NOTE | 2018-04-06 23:44 | PN ---
PROGRESS NOTE DATE OF SERVICE: April 06, 2018. PRESENTING COMPLAINT: Short of breath. INTERVAL HISTORY: The patient has multiple problems, presented with short of breath, orthopnea, found to be in acute congestive heart failure, had acute renal failure. Breathing a bit better. The patient a bit tired. Patient needed 2 person assist to get to the edge of the bed. REVIEW OF SYSTEMS: Done for constitutional, cardiovascular, GI, pulmonary, relevant findings as above. CURRENT MEDICATIONS: Reviewed that include IV Lasix. PHYSICAL EXAMINATION: VITAL SIGNS: Temperature 97.9, pulse 75, respiratory 20, blood pressure 108/64, pulse ox 99% on 2 L. GENERAL APPEARANCE: Lying in bed, tired, awake. EYES: Pupils equal. Conjunctivae normal. HEENT: External appearance of nose and ears normal. Oral cavity normal. NECK: JVD not raised. Mass not palpable. RESPIRATORY: Effort increased. LUNGS: Decreased breath sounds. CARDIOVASCULAR: Heart sounds regular. No edema. ABDOMEN: Soft, nontender. Liver and spleen not palpable. PSYCHIATRY: Alert and oriented x3. Mood and affect normal. INVESTIGATIONS: White count 11.5, hemoglobin 10.7, potassium 4.3, BUN 63, creatinine 1.38. ASSESSMENT: 1. Acute congestive heart failure exacerbation from systolic dysfunction EF 40-45 percent. 2. Moderate pericardial effusion, cause unknown. 3. Bilateral pleural effusion, probably from congestive heart failure. 4. Persistent atrial flutter fibrillation, rate controlled. 5. Hyperlipidemia. 6. Essential hypertension. 7. Chronic gait dysfunction uses a walker. 8. Acute renal failure, likely prerenal. 9. Primary osteoarthritis. 10.Troponin leak in the setting of renal failure, not acute coronary syndrome. PLAN: Patient wants to go home, but patient's wants to go to rehab, which is probably more appropriate. PT/OT is on the case. I did talk to the patient looking at possibly patient going back to the [facility]. MMODL / IJN: [id number] /
[2018-04-07] MEDS: CARVEDILOL 12.5 MG TAB PO SCH (06:33)
[2018-04-07 06:56] LABS: Calcium 8.9 mg/dL (8.4-10.2); Potassium 4.1 mmol/L (3.5-5.1)
[2018-04-07] MEDS: ALLOPURINOL 300 MG TAB PO SCH (08:11)
[2018-04-07] MEDS: FUROSEMIDE 10 MG/ML 4 ML VIAL IV SCH (08:11)
[2018-04-07] MEDS: APIXABAN 2.5 MG TABLET PO SCH ×2 (08:11→21:26)
[2018-04-07] MEDS: MUPIROCIN 2% OINT 22 GM TUBE TOPICAL SCH ×3 (08:24→21:14)
[2018-04-07 09:55] VITALS: RESP 18
--- NOTE | 2018-04-07 10:33 | P.PN ---
Subjective Progress Note Date: 04/07/18 Principal diagnosis: Seen and examined for the follow-up of acute kidney injury. Lying comfortable in the bed. No nausea vomiting or diarrhea. Objective - Vital Signs Vital signs: Vital Signs Temp 97.9 F 04/07/18 08:00 Pulse 64 04/07/18 08:00 Resp 18 04/07/18 08:00 BP 97/64 04/07/18 08:00 Pulse Ox 95 04/07/18 08:00 Intake & Output 04/06/18 04/07/18 04/07/18 18:59 06:59 18:59 Intake Total 420 Output Total 1000 950 Balance -580 -950 Weight 92 kg Intake: IV 10 .9 10 Oral 410 Output: Urine 1000 950 Other: # Voids 1 - Exam No acute distress S1-S2 heard Lungs clear Trace edema - Labs CBC & Chem 7: 04/06/18 05:51 04/07/18 05:40 Labs: Abnormal Lab Results - Last 24 Hours (Table) 04/07/18 Range/Units 05:40 Carbon Dioxide 31 H (22-30) mmol/L BUN 63 H (9-20) mg/dL Creatinine 1.37 H (0.66-1.25) mg/dL Glucose 106 H (74-99) mg/dL Microbiology - Last 24 Hours (Table) 04/04/18 00:25 Blood Culture - Preliminary Blood No Growth after 72 hours Assessment and Plan Assessment: #1 acute kidney injury secondary to cardiorenal syndrome. Creatinine stable and improving. #2 diastolic CHF #3 hypotension #4 volume overload improved #5 hyponatremia Plan: #1 currently on Lasix 40 mg IV twice a day. Change to by mouth Demadex from tomorrow morning. #2 avoid nephrotoxic agents and hypotensive episodes #3 decrease Coreg from 12.5 mg to 6.25 mg twice a day for low blood pressures.
--- NOTE | 2018-04-07 12:19 | P.PN ---
Subjective This is a pleasant 87-year-old male past medical history significant for hypertension, dyslipidemia, chronic persistent atrial fibrillation. He follows with a perinatal director at [facility]. We have been following him and his [place] secondary to progressively increasing shortness of breath with exertion. He was seen and examined laying flat in bed in no acute distress. He states his breathing has greatly improved since admission. He has been urinating using the urinal. He has a negative fluid balance of 1530 mL over the previous 24 hours and is down 2 kg since yesterday. He has been receiving IV Lasix 40 mg twice a day. Laboratory data reviewed, WBC 11.5, hemoglobin 10.7 , sodium 137, potassium 4.1, creatinine 1.37. Blood pressure this morning 97/ 64 heart rate 64 afebrile maintaining oxygen saturation on 2 L nasal cannula. The patient states he is ready to go home. He also has been seen by nephrology this morning and his IV Lasix discontinued and changed over to Demadex 20 mg daily. Carvedilol was decreased to 6.25 mg twice a day. GENERAL: Well-appearing, well-nourished and in no acute distress. NECK: Supple without JVD or thyromegaly. LUNGS: Breath sounds clear to auscultation bilaterally. Respiration equal and unlabored. No wheezes, rales or rhonchi. HEART: Irregular rate and rhythm with systolic ejection murmur at the base, no rubs or gallops. S1 and S2 heard. EXTREMITIES: Normal range of motion, no edema. No clubbing or cyanosis. Peripheral pulses intact. ASSESSMENT Acute on chronic diastolic heart failure, significantly improved since admission Hypertension Dyslipidemia Chronic persistent atrial fibrillation on long-term anticoagulation with Eliquis with controlled ventricular response Acute kidney injury, secondary to cardiorenal syndrome PLAN Stable from a cardiac perspective. Continue anti-coagulation with Eliquis. Enalapril, amlodipine and hydrochlorothiazide have been discontinued since admission for hypotension. He has been transitioned to PO diuretics per nephrology. We will continue to follow as needed. He would like to follow up with Dr. Traylor on discharge rather than traveling out of town to his current [place] perinatal director. Nurse Practitioner note has been reviewed, I agree with a documented findings and plan of care. Patient was seen and examined. Objective - Vital Signs Vital signs: Vital Signs Temp 97.9 F 04/07/18 08:00 Pulse 64 04/07/18 08:00 Resp 18 04/07/18 08:00 BP 97/64 04/07/18 08:00 Pulse Ox 95 04/07/18 08:00 Intake & Output 04/06/18 04/07/18 04/07/18 18:59 06:59 18:59 Intake Total 420 Output Total 1000 950 Balance -580 -950 Weight 92 kg Intake: IV 10 .9 10 Oral 410 Output: Urine 1000 950 Other: # Voids 1 - Labs CBC & Chem 7: 04/06/18 05:51 04/07/18 05:40 Labs: Abnormal Lab Results - Last 24 Hours (Table) 04/07/18 Range/Units 05:40 Carbon Dioxide 31 H (22-30) mmol/L BUN 63 H (9-20) mg/dL Creatinine 1.37 H (0.66-1.25) mg/dL Glucose 106 H (74-99) mg/dL Microbiology - Last 24 Hours (Table) 04/04/18 00:25 Blood Culture - Preliminary Blood No Growth after 72 hours
--- NOTE | 2018-04-07 17:12 | PN ---
PROGRESS NOTE DATE OF SERVICE: 04/07/2018. PRESENTING COMPLAINT: Tired. INTERVAL HISTORY: The patient presented with acute congestive heart failure, acute renal failure. Doing better. Still needing assistance. is present. The patient wants to go home, but the wants him to go to rehab as he is still requiring significant assistance. The patient did tolerate a diet. REVIEW OF SYSTEMS: Done for constitutional, cardiovascular, GI, pulmonary; relevant findings as above. CURRENT MEDICATIONS: Reviewed that include IV Lasix. He did get that this morning, now being switched over to oral Demadex. PHYSICAL EXAMINATION: Temperature 97.6, pulse 71, respiratory 18, blood pressure 96/63, pulse 94 percent on 2 L. GENERAL APPEARANCE: Sitting up in a chair, awake. EYES: Pupils equal. Conjunctivae normal. HEENT: External appearance of nose and ears normal. Oral cavity normal. NECK: JVD not raised. Mass not palpable. RESPIRATORY: Effort normal. Lungs, decreased breath sounds. CARDIOVASCULAR: Heart sounds irregular, no edema. ABDOMEN: Soft, nontender. Liver and spleen not palpable. PSYCHIATRY: Awake, answering simple questions. INVESTIGATIONS: Potassium 4.1, BUN 63, creatinine 1.37. ASSESSMENT: 1. Acute congestive heart failure exacerbation from systolic dysfunction, EF 40-45 percent, now patient is euvolemic. 2. Moderate pericardial effusion, cause unknown. 3. Bilateral pleural effusion probably from congestive heart failure with clinical improvement. 4. Persistent atrial flutter fibrillation, rate controlled. 5. Hyperlipidemia. 6. Essential hypertension. 7. Chronic gait dysfunction, uses a walker. 8. Acute renal failure, likely prerenal. 9. Primary osteoarthritis. 10.Troponin leak in the setting of renal failure, not acute coronary syndrome. PLAN: Medications have been further adjusted. Care was discussed with the patient and . Looking at patient probably going to the [facility] tomorrow. MMODL / IJN: [id number] /
[2018-04-07] MEDS: CARVEDILOL 6.25 MG TAB PO SCH (17:13)
[2018-04-07] MEDS: ATORVASTATIN 40 MG TAB PO SCH (21:26)
[2018-04-07] MEDS ORDERED: QUEtiapine 50 MG TAB PO SCH (23:30)
[2018-04-08] MEDS: CARVEDILOL 6.25 MG TAB PO SCH (06:29)
[2018-04-08 07:12] LABS: Calcium 8.9 mg/dL (8.4-10.2)
[2018-04-08] MEDS: ALLOPURINOL 300 MG TAB PO SCH (08:06)
[2018-04-08] MEDS: APIXABAN 2.5 MG TABLET PO SCH (08:06)
[2018-04-08] MEDS ORDERED: TORSEMIDE 20 MG TAB PO SCH (09:00)
--- NOTE | 2018-04-08 09:54 | P.PN ---
Subjective Patient is seen in follow-up for acute kidney injury. Renal function is improving with creatinine down to 1.1 today. Currently resting in bed. Dyspnea is improved. No vomiting or diarrhea. Admits to good urine output. Vital signs are stable. General: The patient appeared well nourished and normally developed. HEENT: Head exam is unremarkable. Neck is without jugular venous distension. LUNGS: Lungs are clear to auscultation and percussion. Breath sounds decreased. HEART: Rate and Rhythm are regular. First and second heart sounds normal. No murmurs, rubs or gallops. ABDOMEN: Abdominal exam reveals normal bowel sounds. Non-tender and non- distended. No evidence of peritonitis. EXTREMITITES: No clubbing, cyanosis, or edema. Objective - Vital Signs Vital signs: Vital Signs Temp 98.8 F 04/08/18 00:00 Pulse 66 04/08/18 04:00 Resp 18 04/08/18 04:00 BP 116/64 04/08/18 00:00 Pulse Ox 94 L 04/08/18 00:00 Intake & Output 04/07/18 04/08/18 04/08/18 18:59 06:59 18:59 Intake Total 240 Output Total 500 450 Balance -500 -450 240 Weight 91.5 kg Intake: Oral 240 Output: Urine 500 450 Other: Voiding Method Urinal Urinal # Voids 1 - Labs CBC & Chem 7: 04/06/18 05:51 04/08/18 06:20 Labs: Abnormal Lab Results - Last 24 Hours (Table) 04/08/18 Range/Units 06:20 Carbon Dioxide 31 H (22-30) mmol/L BUN 58 H (9-20) mg/dL Microbiology - Last 24 Hours (Table) 04/04/18 00:25 Blood Culture - Preliminary Blood No Growth after 96 hours Assessment and Plan Plan: Assessment: 1. Nonoliguric acute kidney injury mostly prerenal secondary to cardiorenal syndrome. Creatinine 1.58 on admission and is down to 1.1 today. No evidence of hydronephrosis noted on renal ultrasound. Baseline creatinine near 1. UA benign. 2. Hypotension secondary to diuresis and antihypertensives. Better. 3. Diastolic CHF. 4. Dyspnea secondary to volume overload. Improved. Plan: Maintain Demadex 20 mg once daily. Repeat electrolytes in the morning.
[2018-04-08] MEDS ORDERED: POLYETHYLENE GLYCOL 3350 17 GM POWD.PACK PO SCH (10:15)
[2018-04-08 11:29] VITALS: BP 132/67; PULSE 63; TEMP 96.9
[2018-04-08] MEDS: MUPIROCIN 2% OINT 22 GM TUBE TOPICAL SCH (12:52)
--- NOTE | 2018-04-08 15:11 | P.PN ---
Subjective Progress Note Date: 04/08/18 This is an 87-year-old gentleman with past medical history significant for hypertension, hyperlipidemia,chronic persistent atrial fibrillation who follows with a strategic analyst at [place]. He presented to the hospital with symptoms of shortness of breath which she states that been progressively getting worse over the past 4 days or so. He has been told in the past to have congestive heart failure. He does have prior history of smoking, quit over 30 years ago. He does state that he has history of aortic stenting in the past.chest x-ray on arrival here showed new bilateral pleural effusions as compared with old exam, no acute heart failure noted. EKG on arrival here showed atrial fibrillation with a controlled ventricular response. Lung perfusion scan was performed which was low probability for pulmonary embolism. blood pressure 112/70 on arrival, heart rate in the 70s, 94% on room air.White blood cell count 15.2, hemoglobin 12.1, platelet count 253. D-dimer 3.1.sodium 131, potassium 5.1, BUN 47, creatinine 1.5.BNP level 3390.troponin 0.08, 0.06, 0.04. Patient has been initiated on IV Lasix in the emergency room. At the time of my examination, he does state that he is feeling somewhat better than his presentation here. 04/06/2018 Patient seen and examined this morning, does state that he is feeling overall better today. Diuresing well overall. Continues to be on IV Lasix 40 mg every 12 hourly. Sodium 134, potassium 4.3, BUN 63, creatinine 1.3. Magnesium 2.1. 04/08/2018 Patient seen and examined today, doing well. Anticipating discharge home today. He will follow-up with Dr. Watkins on discharge. Let pressure 132/60 with a heart rate in the 60s, 98% on room air. Sodium 137, potassium 4.0, BUN 58, creatinine 1.1. Objective - Vital Signs Vital signs: Vital Signs Temp 96.9 F L 04/08/18 11:24 Pulse 63 04/08/18 11:24 Resp 18 04/08/18 11:24 BP 132/67 04/08/18 11:24 Pulse Ox 98 04/08/18 11:24 Intake & Output 04/07/18 04/08/18 04/08/18 18:59 06:59 18:59 Intake Total 420 Output Total 500 450 250 Balance -500 -450 170 Weight 91.5 kg Intake: Oral 420 Output: Urine 500 450 250 Other: Voiding Method Urinal Urinal Urinal # Voids 1 1 - Exam PHYSICAL EXAMINATION: GENERAL:87-year-old gentleman in no acute distress at the time of my examination HEENT: Head is atraumatic, normocephalic. Pupils equal, round. Sclera anicteric. Conjunctiva are clear. Mucous membranes of the mouth are moist. Neck is supple. There is no elevated jugular venous pressure.no carotid bruit is heard. HEART EXAMINATION:heart S1 and S2 irregularly irregular a systolic murmur is heard. CHEST EXAMINATION:lungs reveal diminished. She to bilateral bases with fine rales noted bilaterally ABDOMEN: [ Soft, nontender. Bowel sounds are heard. No organomegaly noted]. EXTREMITIES:[ 2+ peripheral pulses with trace evidence of peripheral edema and no calf tenderness noted]. NEUROLOGIC [patient is awake, alert and oriented X3.] . - Labs CBC & Chem 7: 04/06/18 05:51 04/08/18 06:20 Labs: Abnormal Lab Results - Last 24 Hours (Table) 04/08/18 Range/Units 06:20 Carbon Dioxide 31 H (22-30) mmol/L BUN 58 H (9-20) mg/dL Microbiology - Last 24 Hours (Table) 04/04/18 00:25 Blood Culture - Preliminary Blood No Growth after 96 hours Assessment and Plan Plan: assessment and plan #1 congestive heart failure, LV function unknown #2 hypertension #3 hyperlipidemia #4 chronic persistent atrial fibrillation, on Eliquis for anticoagulation #5 prior aortic stenting, exact details unavailable Plan Cardiology's perspective, patient may be able to be discharged home today. We' ll make a follow-up appointment for him to see Dr. Watkins in the office post discharge. DNP note has been reviewed, I agree with a documented findings and plan of care. Patient was seen and examined.
--- NOTE | 2018-04-09 00:24 | DS ---
DISCHARGE SUMMARY DATE OF ADMISSION: 04/04/2018. DATE OF DISCHARGE: 04/08/2018. FINAL DIAGNOSES: 1. Acute congestive heart failure exacerbation from systolic dysfunction EF 40-45 percent. 2. Moderate pericardial effusion, cause unknown. 3. Bilateral pleural effusion, probably from congestive heart failure with clinical improvement. 4. Persistent atrial flutter fibrillation, rate controlled. 5. Hyperlipidemia. 6. Essential hypertension. 7. Chronic gait dysfunction uses a walker. 8. Acute renal failure, likely prerenal. 9. Primary osteoarthritis. 10.Troponin leak in the setting of renal failure, not acute coronary syndrome. CONSULTATIONS: Dr. Traylor from Cardiology and from Nephrology. HOSPITAL COURSE: This patient presented with CHF exacerbation, given IV Lasix to which he responded. 2D echo showed moderate pericardial effusion. There was also pleural effusion. Breathing was much improved. Tolerating a diet by the time of discharge. Initially patient was suggested to go to [facility], but the patient completely refused, but he was doing a little bit better. He has ample support at home. This was discussed 2 or 3 times with the patient's but the patient insisted on going home and he is the decision maker. Therefore, he is being let go. PHYSICAL EXAMINATION: Temperature 96.9, pulse 63, respiratory 18, blood pressure 132/67, pulse ox 98% on room air. LABS: Potassium 4.0, BUN 58, creatinine 1.1. DISCHARGE MEDICATIONS: 1. Allopurinol 300 mg p.o. daily. 2. Eliquis 2.5 mg p.o. b.i.d. 3. Aspirin 81 mg daily. 4. CO Q 10 100 mg p.o. daily. 5. Lutein 10 mg p.o. daily. 6. Lipitor 40 mg q.h.s. 7. Coreg 6.25 p.o. b.i.d. 8. Metamucil 6 grams p.o. daily. 9. Demadex 20 mg p.o. daily. FOLLOW UP: Dr. Traylor on April 23, 2018. Follow up with Dr. Cedeno on 04/11/2018. [facility] to follow. Labs, BMP in 3 days. Fall precautions. Copy to Dr. Cedeno. MMODL / IJN: [id number] /
--- NOTE | 2018-04-15 08:24 | CDI ---
Documentation Clarification Form Date: 04/15/2018 8:13:35 AM From: Anuradha De La Garza Phone: If questions call Elana Irving at Admit Date: 04/04/2018 3:14:00 AM Patient Name: Taurus Almeida Visit Number: [id number] Discharge Date: 04/08/2018 ATTENTION: The Clinical Documentation Specialists (CDI) and [facility] Coding Staff appreciate your assistance in clarifying documentation. Please respond to the clarification below the line at the bottom and electronically sign. The CDI & [facility] Coding staff will review the response and follow-up if needed. Please note: Queries are made part of the Legal Health Record. If you have any questions, please contact the author of this message via ITS. Genaro Powell MD Atrial Flutter Documentation: ED Provider Note, "EKG shows atrial fibrillation". H&P documents PMH of "atrial fibrillation" and "EKG tracing personally reviewed by me shows atrial fibrillation, rate control 82". Subsequent progress notes and DS, "persistent atrial flutter/fibrillation, rate controlled" or "persistent atrial flutter fibrillation, rate controlled" ( 04/05-04/08). Monitor Tracings document chronic atrial fibrillation. In your professional opinion, can you please clarify the above findings? Atrial flutter and atrial fibrillation present Atrial fibrillation only Unable to determine ATRIAL FLUTTER AND FIBRILATION PRESENT - as documented in dc summary MTDD
--- NOTE | 2018-04-15 08:30 | CDI ---
Documentation Clarification Form Date: 04/15/2018 8:25:41 AM From: Anuradha De La Garza Phone: If questions call Elana Irving at Admit Date: 04/04/2018 3:14:00 AM Patient Name: Taurus Almeida Visit Number: [id number] Discharge Date: 04/08/2018 ATTENTION: The Clinical Documentation Specialists (CDI) and [facility] Coding Staff appreciate your assistance in clarifying documentation. Please respond to the clarification below the line at the bottom and electronically sign. The CDI & [facility] Coding staff will review the response and follow-up if needed. Please note: Queries are made part of the Legal Health Record. If you have any questions, please contact the author of this message via ITS. Genaro Powell MD Conflicting documentation has been found in the medical record regarding patient s type of heart failure. 04/07 Cardiology Progress Note documents "acute on chronic diastolic heart failure, significantly improved since admission". Final Nephrology Progress Note documents "diastolic CHF". 04/08 Cardiology Progress Note documents "Congestive heart failure, LV function unknown". Echocardiogram on date of admit documents "Left ventricular systolic function is low-normal with an EF between 50-55%". Discharge Summary documents "acute congestive heart failure exacerbation from systolic dysfunction. EF 40-45 percent". In your opinion what is the most clinically appropriate diagnosis for this patient? Acute on chronic diastolic heart failure Acute on chronic systolic heart failure Acute on chronic diastolic and systolic heart failure Unable to determine no change in documantation for CHF , as docmented in dc summary MTDD
== END 2018-04-08 14:54 | disposition home health service (06) | DRG 291 ==
LOC: EC 00:12 → 3SCARD 03:14
PROVIDERS: ADMIT Hospitalist; ATTEND Hospitalist
DX: I13.0 Hypertensive heart and chronic kidney disease with heart failure and stage 1 through stage 4 chronic kidney disease, or unspecified chronic kidney disease (principal); I50.23 Acute on chronic systolic (congestive) heart failure; N17.9 Acute kidney failure, unspecified; I48.1 Persistent atrial fibrillation; I48.92 Unspecified atrial flutter; I31.3 Pericardial effusion (noninflammatory); E87.1 Hypo-osmolality and hyponatremia; N18.9 Chronic kidney disease, unspecified; E78.5 Hyperlipidemia, unspecified; I25.10 Atherosclerotic heart disease of native coronary artery without angina pectoris; I95.2 Hypotension due to drugs; M19.91 Primary osteoarthritis, unspecified site; T50.2X5A Adverse effect of carbonic-anhydrase inhibitors, benzothiadiazides and other diuretics, initial encounter; R26.9 Unspecified abnormalities of gait and mobility; Z79.01 Long term (current) use of anticoagulants; Z79.82 Long term (current) use of aspirin; Z79.899 Other long term (current) drug therapy; Z87.891 Personal history of nicotine dependence; Z96.641 Presence of right artificial hip joint; Z90.49 Acquired absence of other specified parts of digestive tract; Z95.828 Presence of other vascular implants and grafts; M19.041 Primary osteoarthritis, right hand; M19.042 Primary osteoarthritis, left hand; T46.1X5A Adverse effect of calcium-channel blockers, initial encounter; T46.4X5A Adverse effect of angiotensin-converting-enzyme inhibitors, initial encounter
CPT/HCPCS: 36415; 71046; 76770; 78582; 80048; 80053; 81003; 82550; 82553; 83735; 83880; 84484; 85025; 85379; 85610; 85730; 87040; 93005; 93306; 94640; 96372; 96374; 99285